=== PATIENT | female | born 1940 | race Caucasian/White ===

== ENCOUNTER 2017-06-20 02:44 | Inpatient (IN) | payer MEDICARE, OTHER ==
[2017-06-20 03:13] LABS: Hematocrit 42 % (35-47); Hemoglobin 13.5 g/dl (12.0-16.0); Mean Corpuscular HGB Conc 33 g/dl (31-36); Mean Corpuscular Hemoglobin 30 pg (27-31); Mean Corpuscular Volume 92 fL (80-97); Mean Platelet Volume 8 um3 (7.4-10.4); Red Cell Distribution Width 14 % (10.5-15); White Blood Count 13.4 10^3/ul (3.5-10.8)
[2017-06-20 03:24] LABS: Albumin 4.1 g/dL (3.2-5.2); BUN/Creatinine Ratio 21.8 (8-20); Calcium 9.5 mg/dL (8.6-10.3); EGFR African American 92.6 (>60); Globulin 2.9 g/dL (2-4); Magnesium 1.5 mg/dL (1.9-2.7); Potassium 3.3 mmol/L (3.5-5.0); Total Bilirubin 0.6 mg/dL (0.2-1.0)
[2017-06-20] MEDS ORDERED: Levofloxacin 500 MG IVPREMIX(* 500 MG/100 ML BAG IVPB ONE (03:47)
[2017-06-20] MEDS ORDERED: Ondansetron ODT TAB* 4 MG PO ONE (03:50)
[2017-06-20] MEDS ORDERED: Ondansetron INJ* 2 MG/ML VIAL ONE (03:51)
[2017-06-20] MEDS ORDERED: Ondansetron INJ* 2 MG/ML VIAL IV ONE (04:02)
--- NOTE | 2017-06-20 04:49 | ED ---
aButista Cardoza Tiffany, scribed for Kamran Hoff on 06/20/17 at 0310 . Complex/Multi-Sys Presentation - HPI Summary HPI Summary: This patient is a year old 76 F BIBA to [facility] with a chief complaint of dizziness s/p falling a few minutes ago due to upper right dental pain that has lasted for a month. The patient rates the tooth pain 10/10 in severity. Symptoms aggravated by nothing. Symptoms alleviated by nothing. Patient reports nausea, weakness, shakiness and bilateral leg edema. Patient denies head trauma , chest pain, back pain, head pain, abdominal pain and fever. The patient is not taking antibiotics for the tooth pain. - History Of Current Complaint Chief Complaint: EDDentalPain Time Seen by Provider: 06/20/17 02:47 Hx Obtained From: Patient Onset/Duration: Gradual Onset, Lasting Weeks - 3 weeks, Still Present Timing: Weeks Severity Currently: Severe - 10/10 Aggravating Factor(s): nothing Alleviating Factor(s): nothing Associated Signs And Symptoms: Positive: Other - nausea, weakness, shakiness and bilateral leg edema; NEGATIVE: head trauma, chest pain, back pain, head pain , abdominal pain and fever - Allergies/Home Medications Allergies/Adverse Reactions: Allergies Allergy/AdvReac Type Severity Reaction Status Date / Time Cephalexin [From Keflex] Allergy HIVES, Verified 11/17/14 06:38 CHILLS-SHOCK Clindamycin Allergy HIVES, Verified 11/17/14 06:38 CHILLS AND SHAKY Lactose Intolerance (GI) AdvReac GI Verified 11/17/14 06:38 wool Allergy Mild Rash Uncoded 06/20/17 03:56 ENVIRONMENTAL Allergy Unknown Uncoded 11/17/14 06:38 Reaction Details TOMATOES, ACID FRUITS AdvReac Mild STINGING Uncoded 06/20/17 03:56 IN MOUTH PMH/Surg Hx/FS Hx/Imm Hx Previously Healthy: No Endocrine/Hematology History: Reports: Hx Diabetes - TYPE II- ORAL MEDICATION AND DIET CONTROLLED Cardiovascular History: Reports: Hx Hypertension - ON MEDICATION FOR Respiratory History: Reports: Hx Asthma, Other Respiratory Problems/Disorders - WEARS OXYGEN 3 LITERS - NASAL CANNULA// SLEEPS IN A RECLINER CHAIR GI History: Reports: Hx Hiatal Hernia - SLEEPS AT AN ANGLE, Hx Irritable Bowel Musculoskeletal History: Reports: Hx Arthritis - "ALL OVER", Other Musculoskeletal History - NECK FUSION NON SURGICAL- RELATED TO ARTHRITIS Sensory History: Reports: Hx Cataracts, Hx Contacts or Glasses - GLASSES Denies: Hx Hearing Aid Opthamlomology History: Reports: Hx Cataracts, Hx Contacts or Glasses - GLASSES Neurological History: Reports: Hx Migraine - YEARS AGO Psychiatric History: Reports: Hx Depression - ON MEDICATION FOR - Surgical History Surgery Procedure, Year, and Place: TEETH EXTRACTIONS- [facility]. CATARACT BILATERAL. CYST REMOVAL - MOUTH- [facility]. CYST REMOVED FROM NECK- [facility] Hx Anesthesia Reactions: No Infectious Disease History: No Infectious Disease History: Denies: Traveled Outside the [place] in Last 30 Days - Family History Known Family History: Positive: Cardiac Disease, Blood Disorder, Other - Mother had breast cancer - Social History Alcohol Use: None Hx Substance Use: No Substance Use Type: Reports: None Hx Tobacco Use: No Smoking Status (MU): Never Smoked Tobacco Review of Systems Positive: Other - NEGATIVE: head truma. Negative: Fever Negative: Chest Pain Positive: Nausea. Negative: Abdominal Pain Positive: Edema - Bilateral leg Neurological: Other - dizziness, shakiness Positive: Weakness. Negative: Headache All Other Systems Reviewed And Are Negative: Yes Physical Exam - Summary Physical Exam Summary: Appearance: Well appearing, no pain distress Skin: warm, dry, reflects adequate perfusion Head/face: normal Teeth: Tenderness over 1-3 tooth area Eyes: EOMI, SHAMIKA ENT: normal Neck: supple, non-tender Respiratory: CTA, breath sounds present Cardiovascular: RRR, pulses symmetrical Abdomen: non-tender, soft Bowel: present Musculoskeletal: normal, strength/ROM intact Neuro: normal, sensory motor intact, A&Ox3 Triage Information Reviewed: Yes Vital Signs On Initial Exam: Initial Vitals Temp Pulse Resp BP Pulse Ox 97.1 F 101 16 142/63 90 06/20/17 02:54 06/20/17 02:54 06/20/17 02:54 06/20/17 02:54 06/20/17 02:54 Vital Signs Reviewed: Yes - Aitf Coma Scale Coma Scale Total: 15 Diagnostics - Vital Signs Vital Signs Temp Pulse Resp BP Pulse Ox 06/20/17 02:54 97.1 F 101 16 142/63 90 - Laboratory Lab Results: Lab Results 06/20/17 06/20/17 06/20/17 Range/Units 02:58 02:58 02:58 WBC 13.4 H (3.5-10.8) 10^3/ul RBC 4.50 (4.0-5.4) 10^6/ul Hgb 13.5 (12.0-16.0) g/dl Hct 42 (35-47) % MCV 92 (80-97) fL MCH 30 (27-31) pg MCHC 33 (31-36) g/dl RDW 14 (10.5-15) % Plt Count 277 (150-450) 10^3/ul MPV 8 (7.4-10.4) um3 Neut % (Auto) 84.5 H (38-83) % Lymph % (Auto) 7.9 L (25-47) % [place] % (Auto) 7.3 (1-9) % Eos % (Auto) 0 (0-6) % Baso % (Auto) 0.3 (0-2) % Absolute Neuts (auto) 11.3 H (1.5-7.7) 10^3/ul Absolute Lymphs (auto) 1.1 (1.0-4.8) 10^3/ul Absolute Monos (auto) 1.0 H (0-0.8) 10^3/ul Absolute Eos (auto) 0 (0-0.6) 10^3/ul Absolute Basos (auto) 0 (0-0.2) 10^3/ul Absolute Nucleated RBC 0 10^3/ul Nucleated RBC % 0 INR (Anticoag Therapy) 1.14 H (0.77-1.02) APTT 28.2 (26.0-36.3) seconds Sodium (133-145) mmol/L Potassium (3.5-5.0) mmol/L Chloride (101-111) mmol/L Carbon Dioxide (22-32) mmol/L Anion Gap (2-11) mmol/L BUN (6-24) mg/dL Creatinine (0.51-0.95) mg/dL Est GFR ( Amer) (>60) Est GFR (Non-Af Amer) (>60) BUN/Creatinine Ratio (8-20) Glucose (70-100) mg/dL Lactic Acid (0.5-2.0) mmol/L Calcium (8.6-10.3) mg/dL Magnesium (1.9-2.7) mg/dL Total Bilirubin (0.2-1.0) mg/dL AST (13-39) U/L ALT (7-52) U/L Alkaline Phosphatase (34-104) U/L Troponin I (<0.04) ng/mL B-Natriuretic Peptide 45 ( - 100) pg/mL Total Protein (6.4-8.9) g/dL Albumin (3.2-5.2) g/dL Globulin (2-4) g/dL Albumin/Globulin Ratio (1-3) Influenza A (Rapid) (Negative) Influenza B (Rapid) (Negative) 06/20/17 06/20/17 06/20/17 Range/Units 02:58 02:58 03:24 WBC (3.5-10.8) 10^3/ul RBC (4.0-5.4) 10^6/ul Hgb (12.0-16.0) g/dl Hct (35-47) % MCV (80-97) fL MCH (27-31) pg MCHC (31-36) g/dl RDW (10.5-15) % Plt Count (150-450) 10^3/ul MPV (7.4-10.4) um3 Neut % (Auto) (38-83) % Lymph % (Auto) (25-47) % [place] % (Auto) (1-9) % Eos % (Auto) (0-6) % Baso % (Auto) (0-2) % Absolute Neuts (auto) (1.5-7.7) 10^3/ul Absolute Lymphs (auto) (1.0-4.8) 10^3/ul Absolute Monos (auto) (0-0.8) 10^3/ul Absolute Eos (auto) (0-0.6) 10^3/ul Absolute Basos (auto) (0-0.2) 10^3/ul Absolute Nucleated RBC 10^3/ul Nucleated RBC % INR (Anticoag Therapy) (0.77-1.02) APTT (26.0-36.3) seconds Sodium 134 (133-145) mmol/L Potassium 3.3 L (3.5-5.0) mmol/L Chloride 98 L (101-111) mmol/L Carbon Dioxide 25 (22-32) mmol/L Anion Gap 11 (2-11) mmol/L BUN 17 (6-24) mg/dL Creatinine 0.78 (0.51-0.95) mg/dL Est GFR ( Amer) 92.6 (>60) Est GFR (Non-Af Amer) 72.0 (>60) BUN/Creatinine Ratio 21.8 H (8-20) Glucose 179 H (70-100) mg/dL Lactic Acid 1.2 (0.5-2.0) mmol/L Calcium 9.5 (8.6-10.3) mg/dL Magnesium 1.5 L (1.9-2.7) mg/dL Total Bilirubin 0.60 (0.2-1.0) mg/dL AST 17 (13-39) U/L ALT 16 (7-52) U/L Alkaline Phosphatase 42 (34-104) U/L Troponin I 0.00 (<0.04) ng/mL B-Natriuretic Peptide ( - 100) pg/mL Total Protein 7.0 (6.4-8.9) g/dL Albumin 4.1 (3.2-5.2) g/dL Globulin 2.9 (2-4) g/dL Albumin/Globulin Ratio 1.4 (1-3) Influenza A (Rapid) Negative (Negative) Influenza B (Rapid) Negative (Negative) Result Diagrams: 06/20/17 02:58 06/20/17 02:58 Lab Statement: Any lab studies that have been ordered have been reviewed, and results considered in the medical decision making process. - Radiology CXR Radiology Interpretation Completed By: ED Physician - Right lower infiltrate - EKG 03:11 Cardiac Rate: NL EKG Rhythm: Sinus Tachycardia - 100 BPM EKG Interpretation: No acute changes Complex Multi-Symp Course/Dx Course Of Treatment: This patient is a year old 76 F BIBA to [facility] with a chief complaint of dizziness s/p falling a few minutes ago due to upper right dental pain that has lasted for a month. An EKG reveals sinus tachycardia 100 BPM and no acute changes. CXR reveals, per ED physician, right lower infiltrate. Bloodwork obtained. We consulted Dr. Rivas (hospitalist) who agrees to admit the patient. Patient will be admitted. The patient is agreeable with this plan. - Diagnoses Differential Diagnoses/HQI/PQRI: Aspiration, Sepsis, Urinary Tract Infection Provider Diagnoses: Toothache, Pulmonary fibrosis, Dizziness, Unable to ambulate, Pneumonia - Physician Notifications Discussed Care Of Patient With: Noam Rivas Time Discussed With Above Provider: 03:52 Instructed by Provider To: Other - Dr. Rivas (hospitalist) agrees to admit the patient. Discharge - Discharge Plan Condition: Fair Disposition: ADMITTED TO [facility] Referrals: Diana Iverson MD [Primary Care Provider] - The documentation as recorded by the Bautista wong Tiffany accurately reflects the service I personally performed and the decisions made by Kavya andrews Emmanuel.
[2017-06-20] MEDS ORDERED: Melatonin (NF) 3 MG TAB PO PRN (05:47)
[2017-06-20] MEDS ORDERED: oxyCODONE TAB* 5 MG TAB PO PRN (05:48)
[2017-06-20] MEDS ORDERED: Ondansetron INJ* 2 MG/ML VIAL IV PRN (05:48)
[2017-06-20] MEDS ORDERED: Potassium Chlor TAB* 20 MEQ TAB.ER PO ONE (05:49)
[2017-06-20] MEDS ORDERED: NS 0.9% 1000 ML* 1,000 ML IV ONE (06:00)
--- NOTE | 2017-06-20 06:08 | HP ---
H&P (Free Text) History and Physical: PCP: Laz Iverson MD Date/Time: 06/20/2017 4945 CC: dizziness, fall HPI: Mrs Watts is a 76YO female HX 3L oxygen dependant interstitial lung disease & DM2 presents after an episode of dizziness resulting in a fall from which she could not get up. She called EMS and was brought in for evaluation. She feels it is due to a dental infection which has been waxing and waning since Thankgi, but worsening over the past week. She reports pain in the R maxilla, nausea without emesis, subjective F/C, and sweats, but no chest pain, SOB, palpitations, cough, congestion, myalgias, change in bowel, B/U/F of urine , rash, open wound, or abdominal pain. PMedHx interstitial lung disease, 3L NC oxygen dependant asthma DM2 HTN HLD IBS depression Ambulatory Orders Nursing to reconcile. Acetaminophen [Tylenol Extra Strength] 1,000 mg PO DAILY 06/06/12 Fexofenadine (NF) [Mariah 180 (NF)] 180 mg PO DAILY 06/06/12 Flovent Hfa 44Mcg* 2 puff INH BID 06/06/12 Fluconazole 100 MG TAB* [Diflucan TAB*] 200 mg PO DAILY PRN 06/06/12 Formoterol CAP.INH* [Foradil Aerolizer*] 1 puff INH BID 06/06/12 Montelukast Sodium TAB* [Singulair TAB*] 10 mg PO DAILY 06/06/12 Multiple Vitamin [Multivitamins] 1 tab PO 1200 06/06/12 Nasacort Aq Nasal [place]* 2 spray BOTH NARES DAILY 06/06/12 Potassium Chloride [K-Tabs] 10 meq PO QAM 06/06/12 Sertraline* [Zoloft*] 50 mg PO DAILY 06/06/12 Simvastatin [Zocor] 20 mg PO BEDTIME 06/06/12 Spironolactone TAB* [Aldactone*] 25 mg PO DAILY 06/06/12 Theophylline TAB* [Romero Dur*] 300 mg PO Q12H 06/06/12 metFORMIN* [Glucophage TAB*] 500 mg PO BID 06/06/12 predniSONE TAB* [Deltasone TAB*] 10 mg PO QAM 06/06/12 Albuterol HFA INHALER* [Ventolin HFA Inhaler*] 2 puff INH Q6H PRN 10/20/14 Calcium Carbonate-Vitamin D [Calcium 600 + D] 1 tab PO 1200 10/20/14 Oxygen 3 Liters By Nasal Cannula 10/20/14 Allergies Cephalexin [From Keflex] Allergy (Verified 11/17/14 06:38) HIVES, CHILLS-SHOCK Clindamycin Allergy (Verified 11/17/14 06:38) HIVES, CHILLS AND SHAKY Lactose Intolerance (GI) Adverse Reaction (Verified 11/17/14 06:38) GI wool Allergy (Mild, Uncoded 06/20/17 03:56) Rash pt states a rash and gets "sick" with breathing problems ENVIRONMENTAL Allergy (Uncoded 11/17/14 06:38) Unknown Reaction Details TOMATOES, ACID FRUITS Adverse Reaction (Mild, Uncoded 06/20/17 03:56) STINGING IN MOUTH SocHx: no tobacco, alcohol, or recreational drug HX; full code status FamHx: positive for HTN, CAD, lung CA, & leukemia ROS: as above, otherwise reviewed and all were negative vitals: Vital Signs Temp 36.2 C 06/20/17 02:54 Pulse 105 06/20/17 04:30 Resp 26 06/20/17 04:30 BP 141/64 06/20/17 04:30 Pulse Ox 92 06/20/17 04:30 Intake & Output 06/19/17 06/19/17 06/20/17 11:59 23:59 11:59 Intake Total 100 Balance 100 Weight 97.522 kg Intake: IV Fluids 100 Constitutional: NAD, normally developed, obese white female HEENM: atraumatic; sclera/conjunctiva: anicteric/clear; hearing: clinically intact; oropharynx: clear, mucosa moist Neck: soft tissue: no nuchal rigidity; thyroid: non-tender Pulmonary: scattered mild crackles & scant end-expiratory wheeze, fair to good aeration, no accessory muscle use CV: RR/RR, normal S1S2, no carotid bruit, no jugular venous distention, 2+ B DP/ PT, no edema Abdominal: soft, non-distended, non-tender, no rebound/guarding/rigidity, normoactive bowel sounds, no hepatosplenomegaly or masses, no costovertebral angle tenderness Musculoskeletal: general: grossly intact, no tenderness to palpation Integumental: normal appearance and texture of exposed skin Psychiatric orientation: AA&O to PPS affect: calm mood: cooperative eye contact: good content: reliable responses: timely insight: good to fair Testing: Lab Results 06/20/17 06/20/17 06/20/17 Range/Units 02:58 02:58 02:58 WBC 13.4 H (3.5-10.8) 10^3/ul RBC 4.50 (4.0-5.4) 10^6/ul Hgb 13.5 (12.0-16.0) g/dl Hct 42 (35-47) % MCV 92 (80-97) fL MCH 30 (27-31) pg MCHC 33 (31-36) g/dl RDW 14 (10.5-15) % Plt Count 277 (150-450) 10^3/ul MPV 8 (7.4-10.4) um3 Neut % (Auto) 84.5 H (38-83) % Lymph % (Auto) 7.9 L (25-47) % [place] % (Auto) 7.3 (1-9) % Eos % (Auto) 0 (0-6) % Baso % (Auto) 0.3 (0-2) % Absolute Neuts (auto) 11.3 H (1.5-7.7) 10^3/ul Absolute Lymphs (auto) 1.1 (1.0-4.8) 10^3/ul Absolute Monos (auto) 1.0 H (0-0.8) 10^3/ul Absolute Eos (auto) 0 (0-0.6) 10^3/ul Absolute Basos (auto) 0 (0-0.2) 10^3/ul Absolute Nucleated RBC 0 10^3/ul Nucleated RBC % 0 INR (Anticoag Therapy) 1.14 H (0.77-1.02) APTT 28.2 (26.0-36.3) seconds Sodium (133-145) mmol/L Potassium (3.5-5.0) mmol/L Chloride (101-111) mmol/L Carbon Dioxide (22-32) mmol/L Anion Gap (2-11) mmol/L BUN (6-24) mg/dL Creatinine (0.51-0.95) mg/dL Est GFR ( Amer) (>60) Est GFR (Non-Af Amer) (>60) BUN/Creatinine Ratio (8-20) Glucose (70-100) mg/dL Lactic Acid (0.5-2.0) mmol/L Calcium (8.6-10.3) mg/dL Magnesium (1.9-2.7) mg/dL Total Bilirubin (0.2-1.0) mg/dL AST (13-39) U/L ALT (7-52) U/L Alkaline Phosphatase (34-104) U/L Troponin I (<0.04) ng/mL B-Natriuretic Peptide 45 ( - 100) pg/mL Total Protein (6.4-8.9) g/dL Albumin (3.2-5.2) g/dL Globulin (2-4) g/dL Albumin/Globulin Ratio (1-3) Influenza A (Rapid) (Negative) Influenza B (Rapid) (Negative) 06/20/17 06/20/17 06/20/17 Range/Units 02:58 02:58 03:24 WBC (3.5-10.8) 10^3/ul RBC (4.0-5.4) 10^6/ul Hgb (12.0-16.0) g/dl Hct (35-47) % MCV (80-97) fL MCH (27-31) pg MCHC (31-36) g/dl RDW (10.5-15) % Plt Count (150-450) 10^3/ul MPV (7.4-10.4) um3 Neut % (Auto) (38-83) % Lymph % (Auto) (25-47) % [place] % (Auto) (1-9) % Eos % (Auto) (0-6) % Baso % (Auto) (0-2) % Absolute Neuts (auto) (1.5-7.7) 10^3/ul Absolute Lymphs (auto) (1.0-4.8) 10^3/ul Absolute Monos (auto) (0-0.8) 10^3/ul Absolute Eos (auto) (0-0.6) 10^3/ul Absolute Basos (auto) (0-0.2) 10^3/ul Absolute Nucleated RBC 10^3/ul Nucleated RBC % INR (Anticoag Therapy) (0.77-1.02) APTT (26.0-36.3) seconds Sodium 134 (133-145) mmol/L Potassium 3.3 L (3.5-5.0) mmol/L Chloride 98 L (101-111) mmol/L Carbon Dioxide 25 (22-32) mmol/L Anion Gap 11 (2-11) mmol/L BUN 17 (6-24) mg/dL Creatinine 0.78 (0.51-0.95) mg/dL Est GFR ( Amer) 92.6 (>60) Est GFR (Non-Af Amer) 72.0 (>60) BUN/Creatinine Ratio 21.8 H (8-20) Glucose 179 H (70-100) mg/dL Lactic Acid 1.2 (0.5-2.0) mmol/L Calcium 9.5 (8.6-10.3) mg/dL Magnesium 1.5 L (1.9-2.7) mg/dL Total Bilirubin 0.60 (0.2-1.0) mg/dL AST 17 (13-39) U/L ALT 16 (7-52) U/L Alkaline Phosphatase 42 (34-104) U/L Troponin I 0.00 (<0.04) ng/mL B-Natriuretic Peptide ( - 100) pg/mL Total Protein 7.0 (6.4-8.9) g/dL Albumin 4.1 (3.2-5.2) g/dL Globulin 2.9 (2-4) g/dL Albumin/Globulin Ratio 1.4 (1-3) Influenza A (Rapid) Negative (Negative) Influenza B (Rapid) Negative (Negative) ECG, personally reviewed: sinus tachycardia rate 100, no ischemia CXR, personally reviewed: chronic, stable bibasilar scarring Impression: 76F presenting with dizziness, generalized weakness, & fall of uncertain etiology with finding of leukocytosis DIAGNOSIS & PLAN Primary infectious burden w/ generalized weakness, suspect UTI : obtain UA : IV levofloxacin : blood CX : PT evaluation : supportive care Secondary interstitial lung disease, 3L NC oxygen dependant : review meds once reconciled asthma : review meds once reconciled DM2 : review meds once reconciled HTN : review meds once reconciled HLD : review meds once reconciled IBS : review meds once reconciled depression : review meds once reconciled Admission Rational: inpatient for fall, generalized weakness, & unidentified infection; do not anticipate discharge w/i 48h DVTp: heparin SQ & SCDs Code Status: full HCP: Fanta Brennan
[2017-06-20] MEDS ORDERED: Levofloxacin 250 MG IVPREMX(*) 250 MG/50 ML BAG IVPB ONE (06:45)
[2017-06-20] MEDS: Acetaminophen TAB* 325 MG PO PRN ×3 (06:55→22:31)
[2017-06-20] MEDS: Omeprazole CAP* 20 MG PO SCH (06:55)
[2017-06-20] MEDS ORDERED: Magnesium Sulfate 2 GM IV* 2 GM/50 ML BAG IVPB ONE (07:15)
--- NOTE | 2017-06-20 07:59 | RAD ---
INDICATION: Dizziness COMPARISON: Most recent chest x-ray dated April 10, 2004 TECHNIQUE: Single AP portable view of the chest was obtained. FINDINGS: Image quality is compromised due to the relative inferiority of a portable chest x-ray. The heart and mediastinum exhibit normal size and contour. There is density obscuring the bilateral lung bases including obscuration of the diaphragm and causing costophrenic angle blunting. More superiorly the lungs are adequately aerated. Visualized bones are normal for the patient's age. IMPRESSION: Density in the bilateral lung bases obscuring the diaphragm. Be atelectasis, consolidation and/or pleural effusion.
[2017-06-20 08:59] LABS: BUN/Creatinine Ratio 22.5 (8-20); Calcium 9.2 mg/dL (8.6-10.3); EGFR African American 89.9 (>60); EGFR African American 91.2 (>60); EGFR Non-African American 69.9 (>60); EGFR Non-African American 70.9 (>60); Potassium 3.6 mmol/L (3.5-5.0)
[2017-06-20] MEDS: NS 0.9% 1000 ML* 1,000 ML IV SCH ×2 (09:01→23:44)
[2017-06-20] MEDS: Insulin LISPRO* 1 UNITS UNIT SUBCUT SCH ×4 (09:08→21:06)
[2017-06-20] MEDS: Docusate CAP* 100 MG PO SCH ×2 (09:09→20:54)
[2017-06-20 10:19] LABS: Urine Bacteria Absent (Absent); Urine Bilirubin Negative (Negative); Urine Glucose Negative (Negative); Urine Nitrite Negative (Negative)
--- NOTE | 2017-06-20 14:52 | PN ---
Subjective Date of Service: 06/20/17 Interval History: Patient seen and examined. States she feels "awful". Upper jaw pain with difficulty opening her mouth, with pain 5/10 at present. Chills throughout the day, t-max>101. Describes no urinary complaints, no SOB, no chest pain. Mild nausea, no vomiting. Complaint of general malaise and weakness. Objective Active Medications: Acetaminophen (Tylenol Tab*) 650 mg PO Q6H PRN PRN Reason: FEVER/PAIN Last Admin: 06/20/17 06:55 Dose: 650 mg Docusate Sodium (Colace Cap*) 200 mg PO BID [facility] Last Admin: 06/20/17 09:09 Dose: 200 mg Heparin Sodium (Porcine) (Heparin Vial(*)) 5,000 units SUBCUT Q8HR [facility] Levofloxacin/Dextrose (Levaquin 750 Mg Ivpremix(*)) 750 mg in 150 mls @ 100 mls /hr IVPB Q24H [facility] Sodium Chloride (Ns 0.9% 1000 Ml*) 1,000 mls @ 100 mls/hr IV PER RATE [facility] Last Admin: 06/20/17 09:01 Dose: 100 mls/hr Insulin Human Lispro (Humalog*) 0 units SUBCUT ACHS [facility] PRN Reason: Protocol Last Admin: 06/20/17 11:52 Dose: Not Given Melatonin (Melatonin (Nf)) 3 mg PO BEDTIME PRN; Protocol PRN Reason: Sleep Omeprazole (Prilosec Cap*) 20 mg PO DAILY@0600 [facility] Last Admin: 06/20/17 06:55 Dose: 20 mg Ondansetron HCl (Zofran Inj*) 4 mg IV Q6H PRN PRN Reason: NAUSEA Oxycodone HCl (Roxycodone Tab*) 5 mg PO Q4H PRN PRN Reason: PAIN (DENTAL) Vital Signs - 8 hr 06/20/17 06/20/17 06/20/17 06:47 07:48 08:06 Temperature 100.7 F Pulse Rate 100 Respiratory 22 16 16 Rate Blood Pressure 137/63 (mmHg) O2 Sat by Pulse 92 Oximetry 06/20/17 11:13 Temperature 97.9 F Pulse Rate 82 Respiratory 16 Rate Blood Pressure 114/47 (mmHg) O2 Sat by Pulse 96 Oximetry Oxygen Devices in Use Now: Nasal Cannula - 3LNC continuous Appearance: Pale, ill appearing, mild distress Eyes: No Scleral Icterus, PERRLA Ears/Nose/Mouth/Throat: - - dry oral mucosa, difficulty visualizing oral cavity Neck: NL Appearance and Movements; NL JVP, Trachea Midline Respiratory: Symmetrical Chest Expansion and Respiratory Effort, Clear to Auscultation Cardiovascular: NL Sounds; No Murmurs; No JVD, RRR Abdominal: NL Sounds; No Tenderness; No Distention Extremities: No Edema, No Clubbing, Cyanosis Skin: No Rash or Ulcers Neurological: Alert and Oriented x 3 Nutrition: Taking PO's Result Diagrams: 06/20/17 02:58 06/20/17 08:37 Additional Lab and Data: Lab Results 06/20/17 06/20/17 06/20/17 Range/Units 02:58 02:58 02:58 WBC 13.4 H (3.5-10.8) 10^3/ul RBC 4.50 (4.0-5.4) 10^6/ul Hgb 13.5 (12.0-16.0) g/dl Hct 42 (35-47) % MCV 92 (80-97) fL MCH 30 (27-31) pg MCHC 33 (31-36) g/dl RDW 14 (10.5-15) % Plt Count 277 (150-450) 10^3/ul MPV 8 (7.4-10.4) um3 Neut % (Auto) 84.5 H (38-83) % Lymph % (Auto) 7.9 L (25-47) % [place] % (Auto) 7.3 (1-9) % Eos % (Auto) 0 (0-6) % Baso % (Auto) 0.3 (0-2) % Absolute Neuts (auto) 11.3 H (1.5-7.7) 10^3/ul Absolute Lymphs (auto) 1.1 (1.0-4.8) 10^3/ul Absolute Monos (auto) 1.0 H (0-0.8) 10^3/ul Absolute Eos (auto) 0 (0-0.6) 10^3/ul Absolute Basos (auto) 0 (0-0.2) 10^3/ul Absolute Nucleated RBC 0 10^3/ul Nucleated RBC % 0 INR (Anticoag Therapy) 1.14 H (0.77-1.02) APTT 28.2 (26.0-36.3) seconds Sodium (133-145) mmol/L Potassium (3.5-5.0) mmol/L Chloride (101-111) mmol/L Carbon Dioxide (22-32) mmol/L Anion Gap (2-11) mmol/L BUN (6-24) mg/dL Creatinine (0.51-0.95) mg/dL Est GFR ( Amer) (>60) Est GFR (Non-Af Amer) (>60) BUN/Creatinine Ratio (8-20) Glucose (70-100) mg/dL Lactic Acid (0.5-2.0) mmol/L Calcium (8.6-10.3) mg/dL Magnesium (1.9-2.7) mg/dL Total Bilirubin (0.2-1.0) mg/dL AST (13-39) U/L ALT (7-52) U/L Alkaline Phosphatase (34-104) U/L Troponin I (<0.04) ng/mL B-Natriuretic Peptide 45 ( - 100) pg/mL Total Protein (6.4-8.9) g/dL Albumin (3.2-5.2) g/dL Globulin (2-4) g/dL Albumin/Globulin Ratio (1-3) Influenza A (Rapid) (Negative) Influenza B (Rapid) (Negative) 06/20/17 06/20/17 06/20/17 Range/Units 02:58 02:58 03:24 WBC (3.5-10.8) 10^3/ul RBC (4.0-5.4) 10^6/ul Hgb (12.0-16.0) g/dl Hct (35-47) % MCV (80-97) fL MCH (27-31) pg MCHC (31-36) g/dl RDW (10.5-15) % Plt Count (150-450) 10^3/ul MPV (7.4-10.4) um3 Neut % (Auto) (38-83) % Lymph % (Auto) (25-47) % [place] % (Auto) (1-9) % Eos % (Auto) (0-6) % Baso % (Auto) (0-2) % Absolute Neuts (auto) (1.5-7.7) 10^3/ul Absolute Lymphs (auto) (1.0-4.8) 10^3/ul Absolute Monos (auto) (0-0.8) 10^3/ul Absolute Eos (auto) (0-0.6) 10^3/ul Absolute Basos (auto) (0-0.2) 10^3/ul Absolute Nucleated RBC 10^3/ul Nucleated RBC % INR (Anticoag Therapy) (0.77-1.02) APTT (26.0-36.3) seconds Sodium 134 (133-145) mmol/L Potassium 3.3 L (3.5-5.0) mmol/L Chloride 98 L (101-111) mmol/L Carbon Dioxide 25 (22-32) mmol/L Anion Gap 11 (2-11) mmol/L BUN 17 (6-24) mg/dL Creatinine 0.78 (0.51-0.95) mg/dL Est GFR ( Amer) 92.6 (>60) Est GFR (Non-Af Amer) 72.0 (>60) BUN/Creatinine Ratio 21.8 H (8-20) Glucose 179 H (70-100) mg/dL Lactic Acid 1.2 (0.5-2.0) mmol/L Calcium 9.5 (8.6-10.3) mg/dL Magnesium 1.5 L (1.9-2.7) mg/dL Total Bilirubin 0.60 (0.2-1.0) mg/dL AST 17 (13-39) U/L ALT 16 (7-52) U/L Alkaline Phosphatase 42 (34-104) U/L Troponin I 0.00 (<0.04) ng/mL B-Natriuretic Peptide ( - 100) pg/mL Total Protein 7.0 (6.4-8.9) g/dL Albumin 4.1 (3.2-5.2) g/dL Globulin 2.9 (2-4) g/dL Albumin/Globulin Ratio 1.4 (1-3) Influenza A (Rapid) Negative (Negative) Influenza B (Rapid) Negative (Negative) Assess/Plan/Problems-Billing Assessment: This is a 76 year old female with complaint of weakness after a dizzy spell with subsquent fall who reports dental issues for which she was supposed to see dentist today, now with fever, chills and increased pain and facial sensitivity. - Patient Problems (1) Abscess of maxilla Code(s): M27.2 - INFLAMMATORY CONDITIONS OF JAWS SNOMED Code(s): 375840739 Comment: - R/O maxillary abcess as source of infection - CT facial bones with focus on R maxilla - Pain control with oxycodone - May change atbx if this is the source, currently on levaquin (2) Fever chills Code(s): R50.9 - FEVER, UNSPECIFIED SNOMED Code(s): 182582776 Comment: - Blood cultures now - Continue IVF - Tylenol PRN - Follow urine cx - Keep levaquin for now (3) Diabetes mellitus Code(s): E11.9 - TYPE 2 DIABETES MELLITUS WITHOUT COMPLICATIONS SNOMED Code(s) : 87581902 Comment: - Monitor sugars - Insulin ss (4) Hypertension Code(s): I10 - ESSENTIAL (PRIMARY) HYPERTENSION SNOMED Code(s): 55320149 Comment: - BP stable, continue home meds (5) COPD (chronic obstructive pulmonary disease) Code(s): J44.9 - CHRONIC OBSTRUCTIVE PULMONARY DISEASE, UNSPECIFIED SNOMED Code(s): 30982189 Comment: - Chronic asthma - O2 3L continuous - continue singulair, theodur and albuterol (6) Depression Current Visit: Yes Status: Acute Code(s): F32.9 - MAJOR DEPRESSIVE DISORDER , SINGLE EPISODE, UNSPECIFIED SNOMED Code(s): 58169334 Comment: - Sertraline 50mg daily Status and Disposition: Remain inpatient to r/o maxillary abcess with bacteremia. Counseling and/or Coordination of Care Minutes: Coordinated with patient and staff
[2017-06-20] MEDS ORDERED: Iodixanol* (CONTRAST) 320 MG/ML 100 ML SDV IV ONE (16:28)
--- NOTE | 2017-06-20 17:42 | RAD ---
INDICATION: Abscess right maxillary region. Tooth extraction. COMPARISON: None TECHNIQUE: Axial source images were acquired from the vertex of the mandible through the orbits. Coronal and sagittal reconstructed images were acquired. 75 mL of Visipaque 320 was utilized. FINDINGS: Bones: There is no acute facial bone fracture. Orbits: The globes and intraconal structures appear intact. The optic nerves are symmetric. Extraocular muscles appear normal. There is no intraconal inflammatory change or retrobulbar mass.. Paranasal sinuses: There is focal mucosal thickening in the floor the left maxillary antrum "22 13 mm. There is a small mucous retention cyst or polyp or perhaps focal mucosal thickening in the right maxillary antrum measuring 1.1 cm. There is mild ethmoid sinus. Compressive thickening. There is right sphenoid sinusitis present a short air-fluid level. Brain: There are no acute abnormalities of the visualized brain parenchyma. Soft tissues: There is no evidence of a superficial abscess about the facial structures. Other: The right submandibular gland appears mildly prominent. There is no stranding adjacent fat [place] or abnormal enhancement. The left submandibular gland is not identified. There is also a heterogeneous and enlarged right thyroid lobe. This could be evaluated with follow-up thyroid sonography The visualized soft tissue elements about the neck appear normal. IMPRESSION: NO EVIDENCE OF A SOFT TISSUE ABSCESS. THERE ARE FINDINGS OF MILD ACUTE AND CHRONIC SINUSITIS. PROMINENT RIGHT SUBMANDIBULAR GLAND. THE LEFT SUBMANDIBULAR GLAND IS NOT SEEN. SUSPECT GOITER. THIS CAN BE REEVALUATED ON A NONEMERGENT BASIS WITH THYROID SONOGRAPHY
[2017-06-20] MEDS: oxyCODONE TAB* 5 MG TAB PO PRN (18:13)
[2017-06-21] MEDS ORDERED: Ibuprofen TAB* 400 MG PO PRN (03:33)
[2017-06-21] MEDS ORDERED: Levofloxacin 750 MG IVPREMIX(* 750 MG/150 ML BAG IVPB SCH (04:00)
[2017-06-21] MEDS: Omeprazole CAP* 20 MG PO SCH (05:52)
[2017-06-21] MEDS: Acetaminophen TAB* 325 MG PO PRN ×2 (05:52→15:58)
[2017-06-21] MEDS: oxyCODONE TAB* 5 MG TAB PO PRN ×2 (05:52→14:26)
[2017-06-21] MEDS: Heparin VIAL(*) 5000 UNITS/ML VIAL (FIVE THOUSAND) SUBCUT SCH ×3 (05:53→21:53)
[2017-06-21] MEDS: Docusate CAP* 100 MG PO SCH (08:54)
[2017-06-21] MEDS: Insulin LISPRO* 1 UNITS UNIT SUBCUT SCH ×4 (08:54→21:53)
[2017-06-21] MEDS: Spironolactone TAB* 25 MG PO SCH (08:55)
[2017-06-21] MEDS: Montelukast Sodium TAB* 10 MG PO SCH (08:55)
[2017-06-21] MEDS: Sertraline* 50 MG TAB PO SCH (08:55)
[2017-06-21] MEDS: NS 0.9% 1000 ML* 1,000 ML IV SCH (15:28)
--- NOTE | 2017-06-21 15:39 | PN ---
Subjective Date of Service: 06/21/17 Interval History: Pt states she is still feeling poorly. She c/o continued intermittent fevers, chills, sweats and overall generalized weakness. She continues to have pain in her R maxilla, no drainage from around her tooth but she feels it is swollen. Objective Active Medications: Acetaminophen (Tylenol Tab*) 650 mg PO Q6H PRN PRN Reason: FEVER/PAIN Last Admin: 06/21/17 05:52 Dose: 650 mg Docusate Sodium (Colace Cap*) 200 mg PO BID [facility] Last Admin: 06/21/17 08:54 Dose: 200 mg Heparin Sodium (Porcine) (Heparin Vial(*)) 5,000 units SUBCUT Q8HR [facility] Last Admin: 06/21/17 14:27 Dose: 5,000 units Levofloxacin/Dextrose (Levaquin 750 Mg Ivpremix(*)) 750 mg in 150 mls @ 100 mls /hr IVPB Q24H [facility] Last Admin: 06/21/17 04:07 Dose: 100 mls/hr Insulin Human Lispro (Humalog*) 0 units SUBCUT ACHS [facility] PRN Reason: Protocol Last Admin: 06/21/17 12:55 Dose: Not Given Melatonin (Melatonin (Nf)) 3 mg PO BEDTIME PRN; Protocol PRN Reason: Sleep Montelukast Sodium (Singulair Tab*) 10 mg PO DAILY [facility] Last Admin: 06/21/17 08:55 Dose: 10 mg Omeprazole (Prilosec Cap*) 20 mg PO DAILY@0600 [facility] Last Admin: 06/21/17 05:52 Dose: 20 mg Ondansetron HCl (Zofran Inj*) 4 mg IV Q6H PRN PRN Reason: NAUSEA Oxycodone HCl (Roxycodone Tab*) 5 mg PO Q4H PRN PRN Reason: PAIN (DENTAL) Last Admin: 06/21/17 14:26 Dose: 5 mg Sertraline HCl (Zoloft*) 50 mg PO DAILY [facility] Last Admin: 06/21/17 08:55 Dose: 50 mg Spironolactone (Aldactone Tab*) 25 mg PO DAILY [facility] Last Admin: 06/21/17 08:55 Dose: 25 mg Vital Signs - 8 hr 06/21/17 06/21/17 06/21/17 07:35 11:55 12:54 Temperature 99.2 F Pulse Rate 78 Respiratory 16 16 18 Rate Blood Pressure 120/61 (mmHg) O2 Sat by Pulse 95 Oximetry 06/21/17 14:26 Temperature Pulse Rate Respiratory 20 Rate Blood Pressure (mmHg) O2 Sat by Pulse Oximetry Oxygen Devices in Use Now: Nasal Cannula - 3L Appearance: Elderly female sitting up in bed, NAD Eyes: No Scleral Icterus Ears/Nose/Mouth/Throat: - - tacky oral mucosa, swelling or clear infection of the R maxilla, molars Respiratory: Symmetrical Chest Expansion and Respiratory Effort, - - coarse bibasilar crackles Cardiovascular: NL Sounds; No Murmurs; No JVD, RRR, - - trace-1+ pitting edema of the B/L LE Abdominal: NL Sounds; No Tenderness; No Distention - obese Extremities: No Clubbing, Cyanosis Skin: No Rash or Ulcers, No Nodules or Sclerosis Neurological: Alert and Oriented x 3 Result Diagrams: 06/20/17 02:58 06/20/17 08:37 Additional Lab and Data: Lab Results 06/20/17 06/20/17 06/20/17 Range/Units 02:58 02:58 02:58 WBC 13.4 H (3.5-10.8) 10^3/ul RBC 4.50 (4.0-5.4) 10^6/ul Hgb 13.5 (12.0-16.0) g/dl Hct 42 (35-47) % MCV 92 (80-97) fL MCH 30 (27-31) pg MCHC 33 (31-36) g/dl RDW 14 (10.5-15) % Plt Count 277 (150-450) 10^3/ul MPV 8 (7.4-10.4) um3 Neut % (Auto) 84.5 H (38-83) % Lymph % (Auto) 7.9 L (25-47) % [place] % (Auto) 7.3 (1-9) % Eos % (Auto) 0 (0-6) % Baso % (Auto) 0.3 (0-2) % Absolute Neuts (auto) 11.3 H (1.5-7.7) 10^3/ul Absolute Lymphs (auto) 1.1 (1.0-4.8) 10^3/ul Absolute Monos (auto) 1.0 H (0-0.8) 10^3/ul Absolute Eos (auto) 0 (0-0.6) 10^3/ul Absolute Basos (auto) 0 (0-0.2) 10^3/ul Absolute Nucleated RBC 0 10^3/ul Nucleated RBC % 0 INR (Anticoag Therapy) 1.14 H (0.77-1.02) APTT 28.2 (26.0-36.3) seconds Sodium (133-145) mmol/L Potassium (3.5-5.0) mmol/L Chloride (101-111) mmol/L Carbon Dioxide (22-32) mmol/L Anion Gap (2-11) mmol/L BUN (6-24) mg/dL Creatinine (0.51-0.95) mg/dL Est GFR ( Amer) (>60) Est GFR (Non-Af Amer) (>60) BUN/Creatinine Ratio (8-20) Glucose (70-100) mg/dL Lactic Acid (0.5-2.0) mmol/L Calcium (8.6-10.3) mg/dL Magnesium (1.9-2.7) mg/dL Total Bilirubin (0.2-1.0) mg/dL AST (13-39) U/L ALT (7-52) U/L Alkaline Phosphatase (34-104) U/L Troponin I (<0.04) ng/mL B-Natriuretic Peptide 45 ( - 100) pg/mL Total Protein (6.4-8.9) g/dL Albumin (3.2-5.2) g/dL Globulin (2-4) g/dL Albumin/Globulin Ratio (1-3) Influenza A (Rapid) (Negative) Influenza B (Rapid) (Negative) 06/20/17 06/20/17 06/20/17 Range/Units 02:58 02:58 03:24 WBC (3.5-10.8) 10^3/ul RBC (4.0-5.4) 10^6/ul Hgb (12.0-16.0) g/dl Hct (35-47) % MCV (80-97) fL MCH (27-31) pg MCHC (31-36) g/dl RDW (10.5-15) % Plt Count (150-450) 10^3/ul MPV (7.4-10.4) um3 Neut % (Auto) (38-83) % Lymph % (Auto) (25-47) % [place] % (Auto) (1-9) % Eos % (Auto) (0-6) % Baso % (Auto) (0-2) % Absolute Neuts (auto) (1.5-7.7) 10^3/ul Absolute Lymphs (auto) (1.0-4.8) 10^3/ul Absolute Monos (auto) (0-0.8) 10^3/ul Absolute Eos (auto) (0-0.6) 10^3/ul Absolute Basos (auto) (0-0.2) 10^3/ul Absolute Nucleated RBC 10^3/ul Nucleated RBC % INR (Anticoag Therapy) (0.77-1.02) APTT (26.0-36.3) seconds Sodium 134 (133-145) mmol/L Potassium 3.3 L (3.5-5.0) mmol/L Chloride 98 L (101-111) mmol/L Carbon Dioxide 25 (22-32) mmol/L Anion Gap 11 (2-11) mmol/L BUN 17 (6-24) mg/dL Creatinine 0.78 (0.51-0.95) mg/dL Est GFR ( Amer) 92.6 (>60) Est GFR (Non-Af Amer) 72.0 (>60) BUN/Creatinine Ratio 21.8 H (8-20) Glucose 179 H (70-100) mg/dL Lactic Acid 1.2 (0.5-2.0) mmol/L Calcium 9.5 (8.6-10.3) mg/dL Magnesium 1.5 L (1.9-2.7) mg/dL Total Bilirubin 0.60 (0.2-1.0) mg/dL AST 17 (13-39) U/L ALT 16 (7-52) U/L Alkaline Phosphatase 42 (34-104) U/L Troponin I 0.00 (<0.04) ng/mL B-Natriuretic Peptide ( - 100) pg/mL Total Protein 7.0 (6.4-8.9) g/dL Albumin 4.1 (3.2-5.2) g/dL Globulin 2.9 (2-4) g/dL Albumin/Globulin Ratio 1.4 (1-3) Influenza A (Rapid) Negative (Negative) Influenza B (Rapid) Negative (Negative) Microbiology and Other Data: Microbiology 06/20/17 10:05 Urine Culture - Final Urine 06/20/17 14:40 Aerobic Blood Culture - Preliminary Blood Venous No Growth Day 1 Anaerobic Blood Culture - Preliminary No Growth Day 1 06/20/17 03:58 Aerobic Blood Culture - Preliminary Blood Venous No Growth Day 1 Anaerobic Blood Culture - Preliminary No Growth Day 1 06/20/17 03:58 Aerobic Blood Culture - Preliminary Blood Venous No Growth Day 1 Anaerobic Blood Culture - Preliminary No Growth Day 1 Assess/Plan/Problems-Billing Ms Watts is a 76 year old female with complaint of weakness after a dizzy spell with subsquent fall who reports dental issues for which she was supposed to see dentist, now with fever, chills and increased pain and facial sensitivity. - Patient Problems (1) Fever of unknown origin Current Visit: Yes Status: Acute Comment: The patient continues to have fevers as high as 103F. I do not think she has a UTI as her urine is nitrate negative and no bacteria were seen. Dental abscess also seems much less likely as the CT scan was negative for abscess. She could have acute on chronic sinusitis however I would have expected her to respond to the levaquin. I am most suspicous the patient may have influenza despite the negative flu swab. Will start tamiflu 75mg BID. Will check CRP and CBC tomorrow. Add CRP to labs drawn in ER yesterday. (2) Interstitial lung disease Current Visit: Yes Status: Acute Code(s): J84.9 - INTERSTITIAL PULMONARY DISEASE, UNSPECIFIED SNOMED Code(s): 358615924 Comment: Continue 3L O2-home setting. No significant SOB at this time. (3) Depression Current Visit: Yes Status: Acute Code(s): F32.9 - MAJOR DEPRESSIVE DISORDER , SINGLE EPISODE, UNSPECIFIED SNOMED Code(s): 53843716 Comment: Continue sertraline 50mg daily. (4) Diabetes mellitus Current Visit: Yes Status: Acute Code(s): E11.9 - TYPE 2 DIABETES MELLITUS WITHOUT COMPLICATIONS SNOMED Code(s): 65408184 Comment: Sugars are under good control. Continue (5) Hypertension Current Visit: Yes Status: Acute Code(s): I10 - ESSENTIAL (PRIMARY) HYPERTENSION SNOMED Code(s): 46294532 Comment: BP is under good control. Will continue the home medication regimen. (6) DVT prophylaxis Current Visit: Yes Status: Acute Code(s): YYL1939 - SNOMED Code(s): 365346474 Comment: SQ heparin (7) Full code status Current Visit: Yes Status: Acute Code(s): Z78.9 - OTHER SPECIFIED HEALTH STATUS SNOMED Code(s): 707120608 Status and Disposition: Remain inpatient to r/o [facility] with bacteremia.
[2017-06-21] MEDS ORDERED: Saline NASAL SPRAY 0.65%* BTL BOTH NARES PRN (15:42)
[2017-06-21] MEDS ORDERED: Docusate CAP* 100 MG PO PRN (16:03)
[2017-06-21 16:20] LABS: C Reactive Protein 172.22 mg/L (< 5.00)
[2017-06-21] MEDS: metroNIDAZOLE TAB* 250 MG PO SCH ×2 (17:01→21:52)
[2017-06-21] MEDS: Oseltamivir CAP* 75 MG PO SCH ×2 (17:01→21:52)
[2017-06-22] MEDS: Acetaminophen TAB* 325 MG PO PRN ×3 (00:33→20:50)
[2017-06-22] MEDS: Levofloxacin 500 MG IVPREMIX(* 500 MG/100 ML BAG IVPB SCH (04:11)
[2017-06-22] MEDS: Heparin VIAL(*) 5000 UNITS/ML VIAL (FIVE THOUSAND) SUBCUT SCH ×3 (05:36→21:40)
[2017-06-22 05:42] LABS: Hematocrit 36 % (35-47); Hemoglobin 11.8 g/dl (12.0-16.0); Mean Corpuscular HGB Conc 33 g/dl (31-36); Mean Corpuscular Hemoglobin 30 pg (27-31); Mean Corpuscular Volume 92 fL (80-97); Mean Platelet Volume 8 um3 (7.4-10.4); Red Blood Count 3.91 10^6/ul (4.0-5.4); Red Cell Distribution Width 15 % (10.5-15); White Blood Count 4.8 10^3/ul (3.5-10.8)
[2017-06-22 06:27] LABS: BUN/Creatinine Ratio 17.3 (8-20); C Reactive Protein 195.81 mg/L (< 5.00); Calcium 8.8 mg/dL (8.6-10.3); EGFR African American 147.8 (>60); Potassium 3.8 mmol/L (3.5-5.0)
[2017-06-22] MEDS: Insulin LISPRO* 1 UNITS UNIT SUBCUT SCH ×4 (07:42→20:53)
[2017-06-22] MEDS: Sertraline* 50 MG TAB PO SCH (09:11)
[2017-06-22] MEDS: Spironolactone TAB* 25 MG PO SCH (09:11)
[2017-06-22] MEDS: metroNIDAZOLE TAB* 250 MG PO SCH ×2 (09:11→20:50)
[2017-06-22] MEDS: Oseltamivir CAP* 75 MG PO SCH ×2 (09:11→20:50)
[2017-06-22] MEDS: Montelukast Sodium TAB* 10 MG PO SCH (09:11)
--- NOTE | 2017-06-22 09:57 | PN ---
Subjective Date of Service: 06/22/17 Interval History: Pt is feeling slightly better in that she feels somewhat less weak. She also states she has slightly less R maxilla/tooth pain and she feels there is less swelling. Objective Active Medications: Acetaminophen (Tylenol Tab*) 650 mg PO Q6H PRN PRN Reason: FEVER/PAIN Last Admin: 06/22/17 00:33 Dose: 650 mg Docusate Sodium (Colace Cap*) 200 mg PO BID PRN PRN Reason: CONSTIPATION Heparin Sodium (Porcine) (Heparin Vial(*)) 5,000 units SUBCUT Q8HR [facility] Last Admin: 06/22/17 05:36 Dose: 5,000 units Levofloxacin/Dextrose (Levaquin 500 Mg Ivpremix(*)) 500 mg in 100 mls @ 100 mls /hr IVPB Q24H [facility] Last Admin: 06/22/17 04:11 Dose: 100 mls/hr Insulin Human Lispro (Humalog*) 0 units SUBCUT ACHS [facility] PRN Reason: Protocol Last Admin: 06/22/17 07:42 Dose: Not Given Melatonin (Melatonin (Nf)) 3 mg PO BEDTIME PRN; Protocol PRN Reason: Sleep Metronidazole (Flagyl Tab*) 500 mg PO BID [facility] Last Admin: 06/22/17 09:11 Dose: 500 mg Montelukast Sodium (Singulair Tab*) 10 mg PO DAILY [facility] Last Admin: 06/22/17 09:11 Dose: 10 mg Ondansetron HCl (Zofran Inj*) 4 mg IV Q6H PRN PRN Reason: NAUSEA Oseltamivir Phosphate (Tamiflu Cap*) 75 mg PO BID [facility] Stop: 06/25/17 21:01 Last Admin: 06/22/17 09:11 Dose: 75 mg Oxycodone HCl (Roxycodone Tab*) 5 mg PO Q4H PRN PRN Reason: PAIN (DENTAL) Last Admin: 06/21/17 14:26 Dose: 5 mg Sertraline HCl (Zoloft*) 50 mg PO DAILY [facility] Last Admin: 06/22/17 09:11 Dose: 50 mg Sodium Chloride (Sodium Chloride 0.65% Nasal [place]*) 2 spray BOTH NARES Q2H PRN PRN Reason: dryness Spironolactone (Aldactone Tab*) 25 mg PO DAILY [facility] Last Admin: 06/22/17 09:11 Dose: 25 mg Vital Signs - 8 hr 06/22/17 06/22/17 06/22/17 03:42 07:37 07:43 Temperature 98.9 F 97.3 F Pulse Rate 69 67 Respiratory 16 18 16 Rate Blood Pressure 123/47 125/51 (mmHg) O2 Sat by Pulse 94 95 Oximetry Oxygen Devices in Use Now: Nasal Cannula Appearance: Elderly female sitting in a chair, NAD Eyes: No Scleral Icterus Ears/Nose/Mouth/Throat: Mucous Membranes Moist Respiratory: Symmetrical Chest Expansion and Respiratory Effort, - - bibasilar crackles unchanged from yesterday Cardiovascular: NL Sounds; No Murmurs; No JVD, RRR, No Edema Abdominal: NL Sounds; No Tenderness; No Distention Extremities: No Clubbing, Cyanosis Skin: No Rash or Ulcers, No Nodules or Sclerosis Neurological: Alert and Oriented x 3 Result Diagrams: 06/22/17 05:20 06/22/17 05:19 Additional Lab and Data: Lab Results 06/20/17 06/20/17 06/20/17 Range/Units 02:58 02:58 02:58 WBC 13.4 H (3.5-10.8) 10^3/ul RBC 4.50 (4.0-5.4) 10^6/ul Hgb 13.5 (12.0-16.0) g/dl Hct 42 (35-47) % MCV 92 (80-97) fL MCH 30 (27-31) pg MCHC 33 (31-36) g/dl RDW 14 (10.5-15) % Plt Count 277 (150-450) 10^3/ul MPV 8 (7.4-10.4) um3 Neut % (Auto) 84.5 H (38-83) % Lymph % (Auto) 7.9 L (25-47) % [place] % (Auto) 7.3 (1-9) % Eos % (Auto) 0 (0-6) % Baso % (Auto) 0.3 (0-2) % Absolute Neuts (auto) 11.3 H (1.5-7.7) 10^3/ul Absolute Lymphs (auto) 1.1 (1.0-4.8) 10^3/ul Absolute Monos (auto) 1.0 H (0-0.8) 10^3/ul Absolute Eos (auto) 0 (0-0.6) 10^3/ul Absolute Basos (auto) 0 (0-0.2) 10^3/ul Absolute Nucleated RBC 0 10^3/ul Nucleated RBC % 0 INR (Anticoag Therapy) 1.14 H (0.77-1.02) APTT 28.2 (26.0-36.3) seconds Sodium (133-145) mmol/L Potassium (3.5-5.0) mmol/L Chloride (101-111) mmol/L Carbon Dioxide (22-32) mmol/L Anion Gap (2-11) mmol/L BUN (6-24) mg/dL Creatinine (0.51-0.95) mg/dL Est GFR ( Amer) (>60) Est GFR (Non-Af Amer) (>60) BUN/Creatinine Ratio (8-20) Glucose (70-100) mg/dL Lactic Acid (0.5-2.0) mmol/L Calcium (8.6-10.3) mg/dL Magnesium (1.9-2.7) mg/dL Total Bilirubin (0.2-1.0) mg/dL AST (13-39) U/L ALT (7-52) U/L Alkaline Phosphatase (34-104) U/L Troponin I (<0.04) ng/mL B-Natriuretic Peptide 45 ( - 100) pg/mL Total Protein (6.4-8.9) g/dL Albumin (3.2-5.2) g/dL Globulin (2-4) g/dL Albumin/Globulin Ratio (1-3) Influenza A (Rapid) (Negative) Influenza B (Rapid) (Negative) 06/20/17 06/20/17 06/20/17 Range/Units 02:58 02:58 03:24 WBC (3.5-10.8) 10^3/ul RBC (4.0-5.4) 10^6/ul Hgb (12.0-16.0) g/dl Hct (35-47) % MCV (80-97) fL MCH (27-31) pg MCHC (31-36) g/dl RDW (10.5-15) % Plt Count (150-450) 10^3/ul MPV (7.4-10.4) um3 Neut % (Auto) (38-83) % Lymph % (Auto) (25-47) % [place] % (Auto) (1-9) % Eos % (Auto) (0-6) % Baso % (Auto) (0-2) % Absolute Neuts (auto) (1.5-7.7) 10^3/ul Absolute Lymphs (auto) (1.0-4.8) 10^3/ul Absolute Monos (auto) (0-0.8) 10^3/ul Absolute Eos (auto) (0-0.6) 10^3/ul Absolute Basos (auto) (0-0.2) 10^3/ul Absolute Nucleated RBC 10^3/ul Nucleated RBC % INR (Anticoag Therapy) (0.77-1.02) APTT (26.0-36.3) seconds Sodium 134 (133-145) mmol/L Potassium 3.3 L (3.5-5.0) mmol/L Chloride 98 L (101-111) mmol/L Carbon Dioxide 25 (22-32) mmol/L Anion Gap 11 (2-11) mmol/L BUN 17 (6-24) mg/dL Creatinine 0.78 (0.51-0.95) mg/dL Est GFR ( Amer) 92.6 (>60) Est GFR (Non-Af Amer) 72.0 (>60) BUN/Creatinine Ratio 21.8 H (8-20) Glucose 179 H (70-100) mg/dL Lactic Acid 1.2 (0.5-2.0) mmol/L Calcium 9.5 (8.6-10.3) mg/dL Magnesium 1.5 L (1.9-2.7) mg/dL Total Bilirubin 0.60 (0.2-1.0) mg/dL AST 17 (13-39) U/L ALT 16 (7-52) U/L Alkaline Phosphatase 42 (34-104) U/L Troponin I 0.00 (<0.04) ng/mL B-Natriuretic Peptide ( - 100) pg/mL Total Protein 7.0 (6.4-8.9) g/dL Albumin 4.1 (3.2-5.2) g/dL Globulin 2.9 (2-4) g/dL Albumin/Globulin Ratio 1.4 (1-3) Influenza A (Rapid) Negative (Negative) Influenza B (Rapid) Negative (Negative) Microbiology and Other Data: Microbiology 06/20/17 10:05 Urine Culture - Final Urine 06/20/17 14:40 Aerobic Blood Culture - Preliminary Blood Venous No Growth Day 1 Anaerobic Blood Culture - Preliminary No Growth Day 1 06/20/17 03:58 Aerobic Blood Culture - Preliminary Blood Venous No Growth Day 1 Anaerobic Blood Culture - Preliminary No Growth Day 1 06/20/17 03:58 Aerobic Blood Culture - Preliminary Blood Venous No Growth Day 1 Anaerobic Blood Culture - Preliminary No Growth Day 1 Assess/Plan/Problems-Billing Ms Watts is a 76 year old female with complaint of weakness after a dizzy spell with subsquent fall who reports dental issues for which she was supposed to see dentist, now with fever, chills and increased pain and facial sensitivity. - Patient Problems (1) Fever of unknown origin Current Visit: Yes Status: Acute Comment: The patient continues to have fevers. I have started tamiflu 75mg BID for possible influenza with a negative swab. Continue levaquin and flagyl for possible sinusitis/dental infection. Will have Dr. Pena see the patient for further recommendations. Her WBC count has normalized but her CRP is markedly elevated. (2) Interstitial lung disease Current Visit: Yes Status: Acute Code(s): J84.9 - INTERSTITIAL PULMONARY DISEASE, UNSPECIFIED SNOMED Code(s): 884589257 Comment: Continue 3L O2-home setting. No significant SOB at this time. Home meds have not been reconciled. I have requested a home medication list from her PCPs office to resume her usual home inhalers. (3) Depression Current Visit: Yes Status: Acute Code(s): F32.9 - MAJOR DEPRESSIVE DISORDER , SINGLE EPISODE, UNSPECIFIED SNOMED Code(s): 74437273 Comment: Continue sertraline 50mg daily. (4) Diabetes mellitus Current Visit: Yes Status: Acute Code(s): E11.9 - TYPE 2 DIABETES MELLITUS WITHOUT COMPLICATIONS SNOMED Code(s): 86818654 Comment: Sugars are under good control. Continue lispro sliding scale. Home meds to be initiated once the list is reconcilled. (5) Hypertension Current Visit: Yes Status: Acute Code(s): I10 - ESSENTIAL (PRIMARY) HYPERTENSION SNOMED Code(s): 24439857 Comment: BP is under good control. Will continue the home medication regimen - will be updated today. (6) DVT prophylaxis Current Visit: Yes Status: Acute Code(s): TYV5345 - SNOMED Code(s): 338372429 Comment: SQ heparin (7) Full code status Current Visit: Yes Status: Acute Code(s): Z78.9 - OTHER SPECIFIED HEALTH STATUS SNOMED Code(s): 953050371 Status and Disposition: .
[2017-06-22] MEDS ORDERED: Albuterol HFA INHALER* 8 gm MDI INH PRN (13:19)
[2017-06-22] MEDS: predniSONE TAB* 10 MG PO SCH (14:24)
[2017-06-22] MEDS: Theophylline TAB* 300 MG PO SCH (14:25)
--- NOTE | 2017-06-22 16:30 | CONS ---
CONSULTATION REPORT: DATE OF CONSULT: 06/22/17 REQUESTING PHYSICIAN: Dr. Doran. CONSULTING SERVICE: Infectious Disease. REASON FOR CONSULT: Fever, myalgia, right facial pain. IMPRESSION: 1. Three days of fever, myalgia, malaise. Influenza PCR negative, though I agree with Dr. Doran it could be a false negative, though it is less common with the influenza PCR, it is still a possibilit y. She does have some tenderness over the right maxillary sinus, could have sinusitis as well. 2. Allergy to KEFLEX and CLINDAMYCIN, both cause anaphylaxis. 3. Interstitial lung disease, on chronic supplemental oxygen. 4. Diabetes. RECOMMENDATIONS: Continue her Tamiflu, Levaquin, and Flagyl and could change Levaquin to oral as maame g as she is continuing to improve. HISTORY OF PRESENT ILLNESS: This is a 76-year-old woman with diabetes and chronic steroid therapy ad mitted with fever, myalgia, malaise that started over the weekend and worsened on Monday which led he r to come to the hospital on Monday. She was found to have a white count of 13,000. She was started on broad spectrum antibiotics. She was febrile and that persisted yesterday as well. She had a CT of the maxillofacial area given her right facial pain that feels like previous dental abscesses. The re was no dental abscess. There was some scattered sinusitis. White count yesterday was down to 4. Her CRP went from 172 on the to 195 on the . Today her fever and chills and malaise has fe lt better. Myalgia is nearly gone. She has had no diarrhea or vomiting. Facial pain is about the sa me. PAST MEDICAL HISTORY: 1. Type 2 diabetes. 2. Obesity. 3. Interstitial lung disease, on supplemental oxygen. 4. Hypertension. 5. Hyperlipidemia. 6. Irritable bowel syndrome. 7. Depression. ALLERGIES: To KEFLEX and CLINDAMYCIN, both cause anaphylaxis. Lactose intolerance. FAMILY HISTORY: Lung cancer and hypertension. SOCIAL HISTORY: She lives in [place] with her partner. Nonsmoker, no alcohol, no travel. There are 2 cats at home. REVIEW OF SYSTEMS: A 14-point review of systems was negative except as noted above. PHYSICAL EXAM: Vital Signs: Temperature is 36.3, heart rate 70, respiratory rate 16, blood pressure 125/51, O2 sat 95% on 3 L, T-max 39.1 overnight. In general, she is awake, not in distress. Neurol ogic: She is oriented x3. Follows all commands. HEENT: There is no conjunctival hemorrhage. Orop harynx without lesions. There is right facial tenderness to palpation below the zygomatic arch. Hear t: Regular rate and rhythm without murmurs, rubs, or gallops. Lungs: Clear to auscultation bilater ally. Abdomen: Soft, nontender, and nondistended. There are bowel sounds present. Skin: There is no rash or splinter hemorrhages. Musculoskeletal: There is no spine tenderness to palpation or join t synovitis. DIAGNOSTIC STUDIES/LAB DATA: Creatinine 0.5, CRP 195, white blood cell count 4.8, hemoglobin 11.8, p latelets 254,00. Please see impressions and recommendations outlined above. Thanks for asking me to see Ms. Watts in consultation. [id number]/[facility] #: [id number]
[2017-06-22] MEDS: metFORMIN* 500 MG TAB PO SCH (20:50)
[2017-06-23] MEDS: Levofloxacin 500 MG IVPREMIX(* 500 MG/100 ML BAG IVPB SCH (03:55)
[2017-06-23] MEDS: Heparin VIAL(*) 5000 UNITS/ML VIAL (FIVE THOUSAND) SUBCUT SCH ×2 (05:28→14:08)
[2017-06-23 05:45] LABS: Hematocrit 35 % (35-47); Hemoglobin 11.7 g/dl (12.0-16.0); Mean Corpuscular HGB Conc 33 g/dl (31-36); Mean Corpuscular Hemoglobin 30 pg (27-31); Mean Corpuscular Volume 91 fL (80-97); Mean Platelet Volume 8 um3 (7.4-10.4); Red Blood Count 3.89 10^6/ul (4.0-5.4); Red Cell Distribution Width 14 % (10.5-15)
[2017-06-23] MEDS: Insulin LISPRO* 1 UNITS UNIT SUBCUT SCH ×2 (08:36→12:51)
[2017-06-23] MEDS ORDERED: Montelukast Sodium TAB* 10 MG PO SCH (09:00)
[2017-06-23] MEDS: predniSONE TAB* 10 MG PO SCH (09:53)
[2017-06-23] MEDS: Montelukast Sodium TAB* 10 MG PO SCH (09:53)
[2017-06-23] MEDS: Sertraline* 50 MG TAB PO SCH (09:54)
[2017-06-23] MEDS: metroNIDAZOLE TAB* 250 MG PO SCH (09:54)
[2017-06-23] MEDS: metFORMIN* 500 MG TAB PO SCH (09:54)
[2017-06-23] MEDS: Spironolactone TAB* 25 MG PO SCH (09:54)
[2017-06-23] MEDS: Oseltamivir CAP* 75 MG PO SCH (09:54)
[2017-06-23] MEDS: Theophylline TAB* 300 MG PO SCH (09:54)
--- NOTE | 2017-06-23 11:42 | PN ---
Subjective Date of Service: 06/23/17 Interval History: Pt is feeling well. She wants to go home. Her breathing is comfortable. She states she feels much better and thinks she can manage at home. Objective Active Medications: Acetaminophen (Tylenol Tab*) 650 mg PO Q6H PRN PRN Reason: FEVER/PAIN Last Admin: 06/22/17 20:50 Dose: 650 mg Albuterol (Ventolin Hfa Inhaler*) 2 puff INH Q3H PRN PRN Reason: SOB/WHEEZING Docusate Sodium (Colace Cap*) 200 mg PO BID PRN PRN Reason: CONSTIPATION Heparin Sodium (Porcine) (Heparin Vial(*)) 5,000 units SUBCUT Q8HR [facility] Last Admin: 06/23/17 05:28 Dose: 5,000 units Levofloxacin/Dextrose (Levaquin 500 Mg Ivpremix(*)) 500 mg in 100 mls @ 100 mls /hr IVPB Q24H [facility] Last Admin: 06/23/17 03:55 Dose: 100 mls/hr Insulin Human Lispro (Humalog*) 0 units SUBCUT ACHS [facility] PRN Reason: Protocol Last Admin: 06/23/17 08:36 Dose: Not Given Melatonin (Melatonin (Nf)) 3 mg PO BEDTIME PRN; Protocol PRN Reason: Sleep Metformin HCl (Glucophage*) 500 mg PO BID [facility] Last Admin: 06/23/17 09:54 Dose: 500 mg Metronidazole (Flagyl Tab*) 500 mg PO BID [facility] Last Admin: 06/23/17 09:54 Dose: 500 mg Montelukast Sodium (Singulair Tab*) 10 mg PO DAILY [facility] Last Admin: 06/23/17 09:53 Dose: 10 mg Montelukast Sodium (Singulair Tab*) 10 mg PO DAILY [facility] Last Admin: 06/23/17 09:57 Dose: Not Given Ondansetron HCl (Zofran Inj*) 4 mg IV Q6H PRN PRN Reason: NAUSEA Oseltamivir Phosphate (Tamiflu Cap*) 75 mg PO BID [facility] Stop: 06/25/17 21:01 Last Admin: 06/23/17 09:54 Dose: 75 mg Oxycodone HCl (Roxycodone Tab*) 5 mg PO Q4H PRN PRN Reason: PAIN (DENTAL) Last Admin: 06/21/17 14:26 Dose: 5 mg Prednisone (Deltasone Tab*) 10 mg PO QAM [facility] Last Admin: 06/23/17 09:53 Dose: 10 mg Sertraline HCl (Zoloft*) 50 mg PO DAILY [facility] Last Admin: 06/23/17 09:54 Dose: 50 mg Sodium Chloride (Sodium Chloride 0.65% Nasal [place]*) 2 spray BOTH NARES Q2H PRN PRN Reason: dryness Spironolactone (Aldactone Tab*) 25 mg PO DAILY [facility] Last Admin: 06/23/17 09:54 Dose: 25 mg Theophylline ([place]*) 300 mg PO DAILY [facility] Last Admin: 06/23/17 09:54 Dose: 300 mg Vital Signs - 8 hr 06/23/17 06/23/17 06/23/17 03:58 07:33 08:00 Temperature 98.1 F 97.8 F Pulse Rate 52 74 Respiratory 16 18 18 Rate Blood Pressure 137/63 148/57 (mmHg) O2 Sat by Pulse 97 94 Oximetry Oxygen Devices in Use Now: Nasal Cannula Appearance: Elderly female sitting in a chair, NAD Eyes: No Scleral Icterus Ears/Nose/Mouth/Throat: Mucous Membranes Moist Respiratory: Symmetrical Chest Expansion and Respiratory Effort, Clear to Auscultation - with bibasilar crackles Cardiovascular: NL Sounds; No Murmurs; No JVD, RRR, No Edema Abdominal: NL Sounds; No Tenderness; No Distention Extremities: No Clubbing, Cyanosis Skin: No Rash or Ulcers, No Nodules or Sclerosis Neurological: Alert and Oriented x 3 Result Diagrams: 06/23/17 05:23 06/22/17 05:19 Additional Lab and Data: Lab Results 06/20/17 06/20/17 06/20/17 Range/Units 02:58 02:58 02:58 WBC 13.4 H (3.5-10.8) 10^3/ul RBC 4.50 (4.0-5.4) 10^6/ul Hgb 13.5 (12.0-16.0) g/dl Hct 42 (35-47) % MCV 92 (80-97) fL MCH 30 (27-31) pg MCHC 33 (31-36) g/dl RDW 14 (10.5-15) % Plt Count 277 (150-450) 10^3/ul MPV 8 (7.4-10.4) um3 Neut % (Auto) 84.5 H (38-83) % Lymph % (Auto) 7.9 L (25-47) % [place] % (Auto) 7.3 (1-9) % Eos % (Auto) 0 (0-6) % Baso % (Auto) 0.3 (0-2) % Absolute Neuts (auto) 11.3 H (1.5-7.7) 10^3/ul Absolute Lymphs (auto) 1.1 (1.0-4.8) 10^3/ul Absolute Monos (auto) 1.0 H (0-0.8) 10^3/ul Absolute Eos (auto) 0 (0-0.6) 10^3/ul Absolute Basos (auto) 0 (0-0.2) 10^3/ul Absolute Nucleated RBC 0 10^3/ul Nucleated RBC % 0 INR (Anticoag Therapy) 1.14 H (0.77-1.02) APTT 28.2 (26.0-36.3) seconds Sodium (133-145) mmol/L Potassium (3.5-5.0) mmol/L Chloride (101-111) mmol/L Carbon Dioxide (22-32) mmol/L Anion Gap (2-11) mmol/L BUN (6-24) mg/dL Creatinine (0.51-0.95) mg/dL Est GFR ( Amer) (>60) Est GFR (Non-Af Amer) (>60) BUN/Creatinine Ratio (8-20) Glucose (70-100) mg/dL Lactic Acid (0.5-2.0) mmol/L Calcium (8.6-10.3) mg/dL Magnesium (1.9-2.7) mg/dL Total Bilirubin (0.2-1.0) mg/dL AST (13-39) U/L ALT (7-52) U/L Alkaline Phosphatase (34-104) U/L Troponin I (<0.04) ng/mL B-Natriuretic Peptide 45 ( - 100) pg/mL Total Protein (6.4-8.9) g/dL Albumin (3.2-5.2) g/dL Globulin (2-4) g/dL Albumin/Globulin Ratio (1-3) Influenza A (Rapid) (Negative) Influenza B (Rapid) (Negative) 06/20/17 06/20/17 06/20/17 Range/Units 02:58 02:58 03:24 WBC (3.5-10.8) 10^3/ul RBC (4.0-5.4) 10^6/ul Hgb (12.0-16.0) g/dl Hct (35-47) % MCV (80-97) fL MCH (27-31) pg MCHC (31-36) g/dl RDW (10.5-15) % Plt Count (150-450) 10^3/ul MPV (7.4-10.4) um3 Neut % (Auto) (38-83) % Lymph % (Auto) (25-47) % [place] % (Auto) (1-9) % Eos % (Auto) (0-6) % Baso % (Auto) (0-2) % Absolute Neuts (auto) (1.5-7.7) 10^3/ul Absolute Lymphs (auto) (1.0-4.8) 10^3/ul Absolute Monos (auto) (0-0.8) 10^3/ul Absolute Eos (auto) (0-0.6) 10^3/ul Absolute Basos (auto) (0-0.2) 10^3/ul Absolute Nucleated RBC 10^3/ul Nucleated RBC % INR (Anticoag Therapy) (0.77-1.02) APTT (26.0-36.3) seconds Sodium 134 (133-145) mmol/L Potassium 3.3 L (3.5-5.0) mmol/L Chloride 98 L (101-111) mmol/L Carbon Dioxide 25 (22-32) mmol/L Anion Gap 11 (2-11) mmol/L BUN 17 (6-24) mg/dL Creatinine 0.78 (0.51-0.95) mg/dL Est GFR ( Amer) 92.6 (>60) Est GFR (Non-Af Amer) 72.0 (>60) BUN/Creatinine Ratio 21.8 H (8-20) Glucose 179 H (70-100) mg/dL Lactic Acid 1.2 (0.5-2.0) mmol/L Calcium 9.5 (8.6-10.3) mg/dL Magnesium 1.5 L (1.9-2.7) mg/dL Total Bilirubin 0.60 (0.2-1.0) mg/dL AST 17 (13-39) U/L ALT 16 (7-52) U/L Alkaline Phosphatase 42 (34-104) U/L Troponin I 0.00 (<0.04) ng/mL B-Natriuretic Peptide ( - 100) pg/mL Total Protein 7.0 (6.4-8.9) g/dL Albumin 4.1 (3.2-5.2) g/dL Globulin 2.9 (2-4) g/dL Albumin/Globulin Ratio 1.4 (1-3) Influenza A (Rapid) Negative (Negative) Influenza B (Rapid) Negative (Negative) Microbiology and Other Data: Microbiology 06/20/17 10:05 Urine Culture - Final Urine 06/20/17 14:40 Aerobic Blood Culture - Preliminary Blood Venous No Growth Day 1 Anaerobic Blood Culture - Preliminary No Growth Day 1 06/20/17 03:58 Aerobic Blood Culture - Preliminary Blood Venous No Growth Day 1 Anaerobic Blood Culture - Preliminary No Growth Day 1 06/20/17 03:58 Aerobic Blood Culture - Preliminary Blood Venous No Growth Day 1 Anaerobic Blood Culture - Preliminary No Growth Day 1 Assess/Plan/Problems-Billing Ms Watts is a 76 year old female with complaint of weakness after a dizzy spell with subsquent fall who reports dental issues for which she was supposed to see dentist, now with fever, chills and increased pain and facial sensitivity. - Patient Problems (1) Fever of unknown origin Current Visit: Yes Status: Acute Comment: Fever has subsided. Will continue tamiflu, levaquin and flagyl as it is unclear what drove her fever. She will follow up with her dentist after discharge for concerns about her crown/tooth pain. (2) Interstitial lung disease Current Visit: Yes Status: Acute Code(s): J84.9 - INTERSTITIAL PULMONARY DISEASE, UNSPECIFIED SNOMED Code(s): 625564505 Comment: Continue 3L O2-home setting. No significant SOB at this time. Continue home meds. (3) Depression Current Visit: Yes Status: Acute Code(s): F32.9 - MAJOR DEPRESSIVE DISORDER , SINGLE EPISODE, UNSPECIFIED SNOMED Code(s): 35994264 Comment: Continue sertraline 50mg daily. (4) Diabetes mellitus Current Visit: Yes Status: Acute Code(s): E11.9 - TYPE 2 DIABETES MELLITUS WITHOUT COMPLICATIONS SNOMED Code(s): 08739439 Comment: Sugars are under good control. Continue metformin. (5) Hypertension Current Visit: Yes Status: Acute Code(s): I10 - ESSENTIAL (PRIMARY) HYPERTENSION SNOMED Code(s): 95911931 Comment: BP is under good control. Will continue the home medication regimen. (6) DVT prophylaxis Current Visit: Yes Status: Acute Code(s): ZUJ2791 - SNOMED Code(s): 607283948 Comment: SQ heparin (7) Full code status Current Visit: Yes Status: Acute Code(s): Z78.9 - OTHER SPECIFIED HEALTH STATUS SNOMED Code(s): 618949971 Status and Disposition: d/c home
[2017-06-23 15:19] VITALS: BP 120/61
--- NOTE | 2017-06-24 02:58 | DS ---
CC: Dr. Iverson * DISCHARGE SUMMARY: DATE OF ADMISSION: 06/20/17 DATE OF DISCHARGE: 06/23/17 PRIMARY CARE PROVIDER: Dr. Iverson. PRINCIPAL DIAGNOSIS: Possible influenza versus acute sinusitis versus dental infection as cause of prolonged fever. SECONDARY DIAGNOSES: 1. Interstitial lung disease, requiring 3 L O2 continuously for chronic hypoxic respiratory failure. 2. Type 2 diabetes. 3. Hypertension. 4. Hyperlipidemia. 5. Depression. DISCHARGE MEDICATIONS: 1. Anoro Ellipta 1 puff inhaled daily. 2. Theophylline 300 mg p.o. daily. 3. Triamcinolone nasal spray 2 puffs both nostrils daily. 4. Calcium plus D 1 tab p.o. daily. 5. Albuterol 2 puffs inhaled q.3 hours p.r.n. shortness of breath. 6. Spironolactone 25 mg p.o. daily. 7. Simvastatin 20 mg p.o. q.h.s. 8. Prednisone 10 mg p.o. daily. 9. Metformin 500 mg p.o. twice daily. 10. Sertraline 50 mg p.o. daily. 11. Potassium chloride 10 mEq p.o. daily. 12. Singulair 10 mg p.o. daily. 13. Fexofenadine 180 mg p.o. daily. 14. Multivitamin 1 tab p.o. daily. 15. Flagyl 500 mg p.o. twice daily x10 doses. 16. Levofloxacin 500 mg p.o. daily x3 doses. 17. Tamiflu 75 mg p.o. twice daily x5 doses. HOSPITAL COURSE: Ms. Watts is a 76-year-old female, who presented to the emergency room on 06/20/17 with complaints of dizziness and fall. The patient felt this is possibly due to dental infection as she has had pain in her right maxilla. The patient developed a fever of initially 100.7 in the emergency room though this peaked at 103.0. The patient was admitted and started on levofloxacin for what was initially suspected to be a urinary tract infection. With further history and the complaints of the dental pain, decision was made to obtain a maxillofacial CT. This was performed on 06/20/17 in the afternoon. This revealed no evidence of soft tissue abscess. There are findings of mild acute and chronic sinusitis. A prominent right submandibular gland is noted. Left submandibular gland was not seen. Goiter is suspected. It is felt that this can be re-evaluated on a non- emergent basis with a thyroid ultrasound. The day following admission, the patient continued to complain of tooth/right maxilla pain. She continued to have fevers despite being on levofloxacin for approximately 24 hours. Because of the ongoing fever and the patient's description of feeling generalized weakness, achiness, chills, and sweats, the decision was made to start the patient on Tamiflu for possible influenza despite her influenza swab being negative. Additionally, as there was concern for possible dental infection, Flagyl was added to the Levaquin. The patient did finally have improvement in her fever curve. She has been afebrile for approximately 24 hours at the time of my evaluation on the day of discharge. The patient in general felt much improved. The decision was made to discharge the patient home to complete the Flagyl, Levaquin, and Tamiflu. The patient will follow up with the dentist as an outpatient. The patient did have an elevated white blood cell count on admission and this trended down to normal. Her CRP was also markedly elevated in the 172 up to 195 range. This can be followed up as an outpatient as clinically the patient was improved. At this point, the patient is felt to be stable for discharge home. FOLLOWUP CONCERNS: The patient is being discharged home today, 06/23/17. ACTIVITY LEVEL: As tolerated. DIET: Diabetic. CONDITION ON DISCHARGE: Stable. FOLLOWUP: The patient should follow up with Dr. Iverson in the next 4 to 7 days. TIME SPENT: Thirty-five minutes was spent discharging this patient. [id number]/[facility] #: [id number] [facility]ITAL[facility]
== END 2017-06-23 16:18 | disposition home or self-care (01) | DRG 158 ==
LOC: ED 02:44 → SSU 03:57
PROVIDERS: ADMIT Hospitalist; ATTEND Hospitalist
DX: K04.7 Periapical abscess without sinus (principal); J84.9 Interstitial pulmonary disease, unspecified; J96.11 Chronic respiratory failure with hypoxia; Z99.81 Dependence on supplemental oxygen; J01.00 Acute maxillary sinusitis, unspecified; E11.9 Type 2 diabetes mellitus without complications; E04.9 Nontoxic goiter, unspecified; J11.1 Influenza due to unidentified influenza virus with other respiratory manifestations; J44.9 Chronic obstructive pulmonary disease, unspecified; E66.9 Obesity, unspecified; J32.0 Chronic maxillary sinusitis; M15.9 Polyosteoarthritis, unspecified; I10 Essential (primary) hypertension; K58.9 Irritable bowel syndrome, unspecified; G43.909 Migraine, unspecified, not intractable, without status migrainosus; F32.9 Major depressive disorder, single episode, unspecified; K44.9 Diaphragmatic hernia without obstruction or gangrene; E78.5 Hyperlipidemia, unspecified; Z88.1 Allergy status to other antibiotic agents; Z91.018 Allergy to other foods; Z91.048 Other nonmedicinal substance allergy status; Z98.42 Cataract extraction status, left eye; Z98.41 Cataract extraction status, right eye; Z82.49 Family history of ischemic heart disease and other diseases of the circulatory system; Z80.3 Family history of malignant neoplasm of breast; Z79.52 Long term (current) use of systemic steroids; Z80.6 Family history of leukemia; Z80.1 Family history of malignant neoplasm of trachea, bronchus and lung; Z68.38 Body mass index [BMI] 38.0-38.9, adult
CPT/HCPCS: 36415; 70487; 71010; 80048; 80053; 81003; 81015; 82565; 83605; 83735; 83880; 84484; 84520; 85025; 85610; 85730; 86140; 87040; 87086; 87502; 93005; 94760; A9270-GY; J1644; J1956; J2405; J3475; J7512; Q9967

== ENCOUNTER 2021-05-07 23:00 | Inpatient (IN) ==
[2021-05-08 00:15] LABS: ABS Lymphocytes 0.4 10^3/ul (1.0-4.8); ABS Monocytes 0.7 10^3/ul (0-0.8); ABS Neutrophils 7.6 10^3/ul (1.5-7.7); Hematocrit 40 % (35-47); Hemoglobin 13.2 g/dL (12.0-16.0); Lymphocyte % 4.9 %; Mean Corpuscular HGB Conc 33 g/dL (31-36); Mean Corpuscular Hemoglobin 29 pg (27-31); Mean Corpuscular Volume 86 fL (80-97); Mean Platelet Volume 7.2 fL (7.4-10.4); Platelet Count 303 10^3/uL (150-450); Red Blood Count 4.58 10^6 /uL (3.70-4.87); Red Cell Distribution Width 15 % (10-15); White Blood Count 8.8 10^3/uL (3.5-10.8)
[2021-05-08 00:31] LABS: ALT 23 U/L (7-52); AST 34 U/L (13-39); Albumin 3.6 g/dL (3.2-5.2); Albumin/Globulin Ratio 1.1 (1-3); Alkaline Phosphatase 56 U/L (35-149); Anion Gap 10 mmol/L (2-11); Blood Urea Nitrogen 30 mg/dL (6-24); CO2 Carbon Dioxide 26 mmol/L (22-32); Calcium 9.6 mg/dL (8.6-10.3); Chloride 99 mmol/L (101-111); Creatine Kinase 568 U/L (10-223); Globulin 3.2 g/dL (2-4); Glucose 200 mg/dL (70-100); Potassium 3.5 mmol/L (3.5-5.0); Sodium 135 mmol/L (135-145); Total Protein 6.8 g/dL (6.4-8.9)
[2021-05-08] MEDS ORDERED: Lactated Ringers 1000 ml BAG 1,000 ML IV ONE (02:57)
[2021-05-08 06:07] LABS: Urine Appearance Cloudy; Urine Bilirubin Negative (Negative); Urine Blood 2+ (Negative); Urine Color Amber; Urine Glucose Negative (Negative); Urine Ketones 1+ (Negative); Urine Nitrite Negative (Negative); Urine Protein 1+(30 mg/dL) (Negative); Urine Specific Gravity 1.021 (1.002-1.030); Urine Urobilinogen Negative (Negative)
[2021-05-08 06:10] LABS: Urine Bacteria 1+ (Absent); Urine Red Blood Cell 3+(>10/hpf) (Absent); Urine Squamous Epithelial Cell Present (Absent); Urine White Blood Cell 1+(6-10/hpf) (Absent)
[2021-05-08] MEDS ORDERED: Albuterol HFA INHALER 8 gm MDI INH PRN (13:55)
[2021-05-08] MEDS ORDERED: NS 0.9% 1000 ml BAG 1,000 ML IV SCH (14:00)
[2021-05-08] MEDS ORDERED: Dextrose 50% Syringe 50 ml 25 GM/50 ML SYRINGE IV PUSH PRN (14:24)
[2021-05-08 14:35] LABS: Troponin I 0.07 ng/mL (<0.03)
[2021-05-08 16:00] LABS: Troponin I 0.05 ng/mL (<0.03)
[2021-05-08 16:50] LABS: Rapid COVID-19 Molecular Undetected (Undetected)
[2021-05-08] MEDS: Heparin 5000 UNITS/ML 1 mL VIAL SUBCUT SCH ×2 (18:14→23:24)
[2021-05-08 20:48] LABS: Troponin I 0.05 ng/mL (<0.03)
[2021-05-08] MEDS: Nystatin SUSPENSION 100,000 UNITS/ML UDC PO SCH ×2 (23:23→23:28)
[2021-05-09] MEDS: Heparin 5000 UNITS/ML 1 mL VIAL SUBCUT SCH ×3 (06:00→22:17)
[2021-05-09 06:11] LABS: ABS Lymphocytes 0.8 10^3/ul (1.0-4.8); ABS Monocytes 0.5 10^3/ul (0-0.8); Eosinophil % 0.1 %; Hematocrit 34 % (35-47); Hemoglobin 10.9 g/dL (12.0-16.0); Lymphocyte % 15.4 %; Mean Corpuscular HGB Conc 33 g/dL (31-36); Mean Corpuscular Hemoglobin 29 pg (27-31); Mean Corpuscular Volume 88 fL (80-97); Mean Platelet Volume 8.1 fL (7.4-10.4); Platelet Count 256 10^3/uL (150-450); Red Blood Count 3.83 10^6 /uL (3.70-4.87); Red Cell Distribution Width 15 % (10-15); White Blood Count 5.3 10^3/uL (3.5-10.8)
[2021-05-09 06:28] LABS: Calcium 8.8 mg/dL (8.6-10.3); Potassium 3.5 mmol/L (3.5-5.0)
[2021-05-09] MEDS: Tiotropium Brom/Olodaterol MDI INH SCH (09:03)
[2021-05-09] MEDS: Nystatin SUSPENSION 100,000 UNITS/ML UDC PO SCH ×4 (09:24→22:18)
[2021-05-10 05:54] LABS: ABS Lymphocytes 1.5 10^3/ul (1.0-4.8); ABS Monocytes 0.5 10^3/ul (0-0.8); ABS Neutrophils 3.6 10^3/ul (1.5-7.7); Eosinophil % 0.6 %; Hematocrit 32 % (35-47); Hemoglobin 10.6 g/dL (12.0-16.0); Mean Corpuscular HGB Conc 33 g/dL (31-36); Mean Corpuscular Hemoglobin 29 pg (27-31); Mean Corpuscular Volume 88 fL (80-97); Mean Platelet Volume 7.7 fL (7.4-10.4); Platelet Count 292 10^3/uL (150-450); Red Blood Count 3.67 10^6 /uL (3.70-4.87); Red Cell Distribution Width 15 % (10-15); White Blood Count 5.6 10^3/uL (3.5-10.8)
[2021-05-10] MEDS: Heparin 5000 UNITS/ML 1 mL VIAL SUBCUT SCH ×2 (06:02→12:57)
[2021-05-10] MEDS: Tiotropium Brom/Olodaterol MDI INH SCH (08:27)
[2021-05-10] MEDS: Nystatin SUSPENSION 100,000 UNITS/ML UDC PO SCH ×3 (09:29→14:10)
[2021-05-10 15:53] VITALS: BP 117/50
== END 2021-05-10 16:15 | disposition home or self-care (01) | DRG 563 ==
LOC: ED 23:00 → EDHOLD 05-08 13:48 → SUATTDRO 05-08 13:48 → MED 05-08 19:52
PROVIDERS: ADMIT Internal Medicine; ATTEND Internal Medicine

== ENCOUNTER 2021-05-14 11:35 | Observation (INO) ==
[2021-05-14] MEDS ORDERED: Albuterol HFA INHALER 8 gm MDI INH PRN (17:34)
[2021-05-14] MEDS ORDERED: Dextrose 50% Syringe 50 ml 25 GM/50 ML SYRINGE IV PUSH PRN (17:36)
[2021-05-14 18:48] LABS: Rapid COVID-19 Molecular Undetected (Undetected)
[2021-05-14] MEDS ORDERED: Enoxaparin 40 MG/0.4 ML SYR SUBCUT SCH (21:00)
[2021-05-15 05:46] LABS: ABS Eosinophils 0.1 10^3/ul (0-0.6); ABS Lymphocytes 1.4 10^3/ul (1.0-4.8); ABS Monocytes 0.6 10^3/ul (0-0.8); ABS Neutrophils 3.5 10^3/ul (1.5-7.7); Hematocrit 34 % (35-47); Lymphocyte % 25.1 %; Mean Corpuscular HGB Conc 33 g/dL (31-36); Mean Corpuscular Hemoglobin 29 pg (27-31); Mean Corpuscular Volume 88 fL (80-97); Mean Platelet Volume 7.1 fL (7.4-10.4); Platelet Count 449 10^3/uL (150-450); Red Blood Count 3.81 10^6 /uL (3.70-4.87); Red Cell Distribution Width 15 % (10-15); White Blood Count 5.7 10^3/uL (3.5-10.8)
[2021-05-15 06:06] LABS: Calcium 9.7 mg/dL (8.6-10.3); Potassium 3.3 mmol/L (3.5-5.0)
[2021-05-15] MEDS: Tiotropium Brom/Olodaterol MDI INH SCH (08:31)
[2021-05-15] MEDS ORDERED: Potassium Chlor 20 meq TAB.ER PO ONE (08:33)
[2021-05-15] MEDS: Enoxaparin 40 MG/0.4 ML SYR SUBCUT SCH (09:08)
[2021-05-15] MEDS: Potassium Chlor 10 meq TAB PO SCH (09:08)
[2021-05-16] MEDS: Tiotropium Brom/Olodaterol MDI INH SCH (08:26)
[2021-05-16] MEDS: Potassium Chlor 10 meq TAB PO SCH (08:54)
[2021-05-16] MEDS: Enoxaparin 40 MG/0.4 ML SYR SUBCUT SCH (08:55)
[2021-05-17 05:46] LABS: ABS Eosinophils 0.1 10^3/ul (0-0.6); ABS Lymphocytes 1.4 10^3/ul (1.0-4.8); ABS Monocytes 0.8 10^3/ul (0-0.8); ABS Neutrophils 5.1 10^3/ul (1.5-7.7); Eosinophil % 1.4 %; Hematocrit 34 % (35-47); Hemoglobin 11.2 g/dL (12.0-16.0); Lymphocyte % 18.6 %; Mean Corpuscular HGB Conc 33 g/dL (31-36); Mean Corpuscular Hemoglobin 29 pg (27-31); Mean Corpuscular Volume 89 fL (80-97); Platelet Count 456 10^3/uL (150-450); Red Blood Count 3.87 10^6 /uL (3.70-4.87); Red Cell Distribution Width 16 % (10-15); White Blood Count 7.4 10^3/uL (3.5-10.8)
[2021-05-17 06:01] LABS: Calcium 9.6 mg/dL (8.6-10.3); Potassium 3.4 mmol/L (3.5-5.0)
[2021-05-17] MEDS: Tiotropium Brom/Olodaterol MDI INH SCH (08:03)
[2021-05-17] MEDS ORDERED: Potassium Chlor 20 meq TAB.ER PO ONE (08:31)
[2021-05-17] MEDS: Potassium Chlor 10 meq TAB PO SCH (08:38)
[2021-05-17] MEDS: Enoxaparin 40 MG/0.4 ML SYR SUBCUT SCH (08:39)
[2021-05-17 15:14] LABS: Calcium 9.4 mg/dL (8.6-10.3); Potassium 4.3 mmol/L (3.5-5.0)
[2021-05-18] MEDS: Tiotropium Brom/Olodaterol MDI INH SCH ×2 (06:55→08:06)
[2021-05-18] MEDS: Potassium Chlor 10 meq TAB PO SCH (09:11)
[2021-05-18] MEDS: Enoxaparin 40 MG/0.4 ML SYR SUBCUT SCH (09:13)
[2021-05-18 10:26] LABS: ABS Eosinophils 0.1 10^3/ul (0-0.6); ABS Lymphocytes 1.5 10^3/ul (1.0-4.8); ABS Monocytes 0.6 10^3/ul (0-0.8); ABS Neutrophils 4.9 10^3/ul (1.5-7.7); Eosinophil % 1.2 %; Hematocrit 36 % (35-47); Hemoglobin 11.9 g/dL (12.0-16.0); Lymphocyte % 20.6 %; Mean Corpuscular HGB Conc 33 g/dL (31-36); Mean Corpuscular Hemoglobin 29 pg (27-31); Mean Corpuscular Volume 88 fL (80-97); Platelet Count 478 10^3/uL (150-450); Red Blood Count 4.12 10^6 /uL (3.70-4.87); Red Cell Distribution Width 16 % (10-15); White Blood Count 7.2 10^3/uL (3.5-10.8)
[2021-05-18 10:42] LABS: Calcium 10.2 mg/dL (8.6-10.3); Potassium 3.9 mmol/L (3.5-5.0)
[2021-05-18] MEDS ORDERED: Regadenoson 0.4 MG/5 ML SYRINGE ONE (14:53)
[2021-05-19 05:46] LABS: ABS Eosinophils 0.1 10^3/ul (0-0.6); ABS Lymphocytes 1.6 10^3/ul (1.0-4.8); ABS Monocytes 0.7 10^3/ul (0-0.8); ABS Neutrophils 4.1 10^3/ul (1.5-7.7); Eosinophil % 1.2 %; Hematocrit 35 % (35-47); Hemoglobin 11.5 g/dL (12.0-16.0); Lymphocyte % 24.5 %; Mean Corpuscular HGB Conc 33 g/dL (31-36); Mean Corpuscular Hemoglobin 29 pg (27-31); Mean Corpuscular Volume 88 fL (80-97); Mean Platelet Volume 6.9 fL (7.4-10.4); Platelet Count 447 10^3/uL (150-450); Red Blood Count 4.03 10^6 /uL (3.70-4.87); Red Cell Distribution Width 16 % (10-15); White Blood Count 6.5 10^3/uL (3.5-10.8)
[2021-05-19 06:03] LABS: Potassium 3.9 mmol/L (3.5-5.0)
[2021-05-19] MEDS: Tiotropium Brom/Olodaterol MDI INH SCH (07:38)
[2021-05-19] MEDS: Enoxaparin 40 MG/0.4 ML SYR SUBCUT SCH (09:26)
[2021-05-19] MEDS: Potassium Chlor 10 meq TAB PO SCH (09:29)
[2021-05-19 09:53] LABS: HDL Cholesterol 40.4 mg/dL
[2021-05-19] MEDS ORDERED: Aspirin EC 81 mg TAB.EC (enteric coated) PO SCH (11:00)
[2021-05-19 11:05] VITALS: BP 98/52
[2021-05-19 11:37] LABS: Rapid COVID-19 Molecular Undetected (Undetected)
== END 2021-05-19 14:00 ==
LOC: ED 11:35 → SSU 11:35
PROVIDERS: ADMIT Internal Medicine; ATTEND Internal Medicine

== ENCOUNTER 2022-08-25 04:47 | Inpatient (IN) ==
[2022-08-25] MEDS ORDERED: Acetaminophen IV 1 GM/100ML 1,000 MG/100 ML BAG IV ONE (05:11)
[2022-08-25] MEDS: Lactated Ringers SEPSIS* BAG 1,570 ML IV ONE ×2 (05:30→06:00)
[2022-08-25 05:33] LABS: ABS Basophils 0.1 10^3/ul (0-0.2); ABS Lymphocytes 0.9 10^3/ul (1.0-4.8); ABS Monocytes 0.9 10^3/ul (0-0.8); ABS Neutrophils 7.8 10^3/ul (1.5-7.7); Eosinophil % 0.3 %; Hematocrit 33 % (35-47); Hemoglobin 10.8 g/dL (12.0-16.0); Lymphocyte % 8.9 %; Mean Corpuscular HGB Conc 32 g/dL (31-36); Mean Corpuscular Hemoglobin 29 pg (27-31); Mean Corpuscular Volume 89 fL (80-97); Mean Platelet Volume 7.1 fL (7.4-10.4); Platelet Count 358 10^3/uL (150-450); Red Blood Count 3.77 10^6 /uL (3.70-4.87); Red Cell Distribution Width 16 % (10-15); White Blood Count 9.6 10^3/uL (3.5-10.8)
[2022-08-25 06:07] LABS: Albumin 3.5 g/dL (3.2-5.2); Albumin/Globulin Ratio 1.3 (1-3); C Reactive Protein 352.92 mg/L (<8.01); Calcium 9.4 mg/dL (8.6-10.3); Creatinine, Serum 0.68 mg/dL (0.51-0.95); Globulin 2.8 g/dL (2-4); Potassium 4.3 mmol/L (3.5-5.0); Total Bilirubin 0.7 mg/dL (0.2-1.0); Total Protein 6.3 g/dL (6.4-8.9); eGFR CKD-EPI 87.4 (>60)
[2022-08-25 06:32] LABS: Activated Partial Thrombo Time 35.3 seconds (26.0-38.0); INR 1.25 (0.88-1.18)
[2022-08-25] MEDS ORDERED: Lorazepam PYXIS KEY PRN ×2 (06:56→18:45)
[2022-08-25 07:06] LABS: Urine Appearance Clear; Urine Bilirubin Negative (Negative); Urine Blood Negative (Negative); Urine Color Yellow; Urine Glucose Negative (Negative); Urine Ketones 1+ (Negative); Urine Nitrite Negative (Negative); Urine Protein 1+(30 mg/dL) (Negative); Urine Urobilinogen Negative (Negative)
[2022-08-25 07:07] LABS: High Sensitivity Troponin 1 Hr 9 pg/mL (<15)
[2022-08-25] MEDS: LORazepam 2 mg VIAL 1 ml IV PUSH ONE ×2 (07:07→09:43)
[2022-08-25 07:10] LABS: Urine Bacteria Absent (Absent); Urine Red Blood Cell Absent (Absent); Urine White Blood Cell Absent (Absent)
[2022-08-25] MEDS ORDERED: Iodixanol (CONTRAST) 320 MG/ML 100 ML SDV IV ONE ×2 (09:22→15:12)
[2022-08-25] MEDS ORDERED: Albuterol HFA INHALER 8 gm MDI INH PRN (12:06)
[2022-08-25] MEDS ORDERED: Enoxaparin 40 MG/0.4 ML SYR SUBCUT SCH (16:00)
[2022-08-25] MEDS ORDERED: LORazepam 2 mg VIAL 1 ml IV PUSH ONE (18:45)
[2022-08-26] MEDS ORDERED: Vancomycin 1,000 MG in NS 0.9% 250 ml 250 ML IVPB SCH (00:31)
[2022-08-26] MEDS ORDERED: Vancomycin per Pharmacy 1 EA NOTE FOLLOW UP PRN (00:35)
[2022-08-26] MEDS ORDERED: Vancomycin 1,250 MG in NS 0.9% 250 ml 250 ML IVPB ONE (01:00)
[2022-08-26 06:53] LABS: Hematocrit 31 % (35-47); Hemoglobin 9.8 g/dL (12.0-16.0); Mean Corpuscular HGB Conc 32 g/dL (31-36); Mean Corpuscular Hemoglobin 28 pg (27-31); Mean Corpuscular Volume 89 fL (80-97); Platelet Count 317 10^3/uL (150-450); Red Blood Count 3.49 10^6 /uL (3.70-4.87); Red Cell Distribution Width 16 % (10-15); White Blood Count 6.6 10^3/uL (3.5-10.8)
[2022-08-26 07:19] LABS: Calcium 8.7 mg/dL (8.6-10.3); Creatinine, Serum 0.69 mg/dL (0.51-0.95); Magnesium 1.7 mg/dL (1.9-2.7); Potassium 3.9 mmol/L (3.5-5.0); eGFR CKD-EPI 87.1 (>60)
[2022-08-26] MEDS: Tiotropium Brom/Olodaterol MDI INH SCH (07:26)
[2022-08-26] MEDS: Fluticasone NASAL SPRAY 50MCG 16 gm SPRAY BTL INTRANASAL SCH (08:07)
[2022-08-26] MEDS: Nystatin TOP POWDER 15 GM BTL TOPICAL SCH ×3 (08:07→22:16)
[2022-08-26 09:10] LABS: ABS Lymphocytes 0.7 10^3/ul (1.0-4.8); ABS Monocytes 0.9 10^3/ul (0-0.8); Eosinophil % 0.3 %; Lymphocyte % 10.8 %; RBC Morphology Normal (Normal)
[2022-08-26 10:02] LABS: Erythrocyte Sed Rate 113 mm/Hr (0-29)
[2022-08-26] MEDS ORDERED: Zosyn per Pharmacy NOTE FOLLOW UP PRN (10:52)
[2022-08-26] MEDS: Vancomycin 1000 MG in NS 0.9% 250 ML IVPB SCH (13:46)
[2022-08-26] MEDS: cefTRIAXone 2 gm/50 mL D5W 2 GM/50 ML BAG IV SCH (18:19)
[2022-08-27] MEDS: Vancomycin 1000 MG in NS 0.9% 250 ML IVPB SCH ×2 (01:41→13:24)
[2022-08-27 07:05] LABS: Hematocrit 27 % (35-47); Hemoglobin 8.6 g/dL (12.0-16.0); Mean Corpuscular HGB Conc 32 g/dL (31-36); Mean Corpuscular Hemoglobin 28 pg (27-31); Mean Corpuscular Volume 89 fL (80-97); Mean Platelet Volume 7.2 fL (7.4-10.4); Platelet Count 296 10^3/uL (150-450); Red Blood Count 3.06 10^6 /uL (3.70-4.87); Red Cell Distribution Width 16 % (10-15)
[2022-08-27] MEDS ORDERED: Magnesium Sulfate 2 gm BAG 2 GM/50 ML BAG IVPB ONE (07:09)
[2022-08-27] MEDS: Tiotropium Brom/Olodaterol MDI INH SCH (07:44)
[2022-08-27 07:45] LABS: Calcium 8.7 mg/dL (8.6-10.3); Creatinine, Serum 0.64 mg/dL (0.51-0.95); Potassium 3.9 mmol/L (3.5-5.0); eGFR CKD-EPI 88.7 (>60)
[2022-08-27] MEDS ORDERED: ZOSYN 3.375 GM Q8H per EXTENDED INFUSION IV SCH (08:00)
[2022-08-27 08:59] LABS: ABS Lymphocytes 1.1 10^3/ul (1.0-4.8); ABS Monocytes 0.8 10^3/ul (0-0.8); ABS Neutrophils 4.1 10^3/ul (1.5-7.7); Eosinophil % 0.6 %; Lymphocyte % 17.7 %; RBC Morphology Normal (Normal)
[2022-08-27] MEDS: Fluticasone NASAL SPRAY 50MCG 16 gm SPRAY BTL INTRANASAL SCH (09:48)
[2022-08-27] MEDS: Enoxaparin 40 MG/0.4 ML SYR SUBCUT SCH (09:48)
[2022-08-27] MEDS: Nystatin TOP POWDER 15 GM BTL TOPICAL SCH ×3 (09:49→21:22)
[2022-08-27] MEDS ORDERED: Vancomycin Trough Check NOTE FOLLOW UP ONE (12:30)
[2022-08-27 12:45] LABS: Hematocrit 29 % (35-47); Hemoglobin 9.1 g/dL (12.0-16.0)
[2022-08-27 13:36] LABS: Creatinine, Serum 0.66 mg/dL (0.51-0.95); Vancomycin Trough 12.2 mcg/mL; eGFR CKD-EPI 88.1 (>60)
[2022-08-27] MEDS: cefTRIAXone 2 gm/50 mL D5W 2 GM/50 ML BAG IV SCH (17:46)
[2022-08-27] MEDS: Polyethylene Glycol 3350 17 GM PACKET PO SCH (21:15)
[2022-08-27] MEDS ORDERED: Vancomycin 1,250 MG in NS 0.9% 250 ml 250 ML IVPB SCH (23:00)
[2022-08-28 06:48] LABS: ABS Lymphocytes 1.1 10^3/ul (1.0-4.8); ABS Monocytes 0.7 10^3/ul (0-0.8); ABS Neutrophils 4.8 10^3/ul (1.5-7.7); Eosinophil % 0.6 %; Hematocrit 27 % (35-47); Hemoglobin 8.7 g/dL (12.0-16.0); Lymphocyte % 16.4 %; Mean Corpuscular HGB Conc 32 g/dL (31-36); Mean Corpuscular Hemoglobin 28 pg (27-31); Mean Corpuscular Volume 88 fL (80-97); Mean Platelet Volume 7.4 fL (7.4-10.4); Platelet Count 338 10^3/uL (150-450); Red Blood Count 3.07 10^6 /uL (3.70-4.87); Red Cell Distribution Width 17 % (10-15); White Blood Count 6.7 10^3/uL (3.5-10.8)
[2022-08-28 07:03] LABS: INR 1.2 (0.88-1.18)
[2022-08-28 07:21] LABS: Calcium 8.9 mg/dL (8.6-10.3); Creatinine, Serum 0.58 mg/dL (0.51-0.95); Potassium 4.5 mmol/L (3.5-5.0); eGFR CKD-EPI 90.9 (>60)
[2022-08-28] MEDS: Tiotropium Brom/Olodaterol MDI INH SCH (07:44)
[2022-08-28 08:38] LABS: C Reactive Protein 137.46 mg/L (<8.01)
[2022-08-28] MEDS: Fluticasone NASAL SPRAY 50MCG 16 gm SPRAY BTL INTRANASAL SCH (09:54)
[2022-08-28] MEDS: Enoxaparin 40 MG/0.4 ML SYR SUBCUT SCH ×2 (09:55→10:27)
[2022-08-28] MEDS: Nystatin TOP POWDER 15 GM BTL TOPICAL SCH ×3 (09:55→21:25)
[2022-08-28] MEDS: Polyethylene Glycol 3350 17 GM PACKET PO SCH ×2 (10:27→11:38)
[2022-08-28] MEDS: Ampicillin ADVAN 2 GM in NS 0.9% 100 ml BAG 100 ML IVPB SCH ×2 (11:39→13:39)
[2022-08-28 14:42] LABS: Magnesium 1.8 mg/dL (1.9-2.7)
[2022-08-28] MEDS ORDERED: Magnesium Sulfate 2 gm BAG 2 GM/50 ML BAG IVPB ONE (14:48)
[2022-08-28] MEDS: cefTRIAXone 2 gm/50 mL D5W 2 GM/50 ML BAG IV SCH (16:08)
[2022-08-29] MEDS: Tiotropium Brom/Olodaterol MDI INH SCH (07:44)
[2022-08-29] MEDS: Fluticasone NASAL SPRAY 50MCG 16 gm SPRAY BTL INTRANASAL SCH (09:45)
[2022-08-29] MEDS: Polyethylene Glycol 3350 17 GM PACKET PO SCH (09:50)
[2022-08-29] MEDS: Enoxaparin 40 MG/0.4 ML SYR SUBCUT SCH (09:51)
[2022-08-29] MEDS: Nystatin TOP POWDER 15 GM BTL TOPICAL SCH ×3 (09:51→21:34)
[2022-08-29] MEDS ORDERED: Vancomycin Trough Check NOTE FOLLOW UP ONE (10:30)
[2022-08-29 10:40] LABS: Hematocrit 30 % (35-47); Hemoglobin 9.4 g/dL (12.0-16.0); Mean Corpuscular HGB Conc 32 g/dL (31-36); Mean Corpuscular Hemoglobin 28 pg (27-31); Mean Corpuscular Volume 88 fL (80-97); Mean Platelet Volume 7.6 fL (7.4-10.4); Platelet Count 383 10^3/uL (150-450); Red Blood Count 3.34 10^6 /uL (3.70-4.87); Red Cell Distribution Width 16 % (10-15); White Blood Count 6.8 10^3/uL (3.5-10.8)
[2022-08-29 11:03] LABS: Calcium 9.3 mg/dL (8.6-10.3); Creatinine, Serum 0.56 mg/dL (0.51-0.95); Magnesium 1.6 mg/dL (1.9-2.7); Potassium 4.1 mmol/L (3.5-5.0); eGFR CKD-EPI 91.6 (>60)
[2022-08-29] MEDS ORDERED: Magnesium Sulfate 2 gm BAG 2 GM/50 ML BAG IVPB ONE (11:13)
[2022-08-29] MEDS: cefTRIAXone 2 gm/50 mL D5W 2 GM/50 ML BAG IV SCH (15:27)
[2022-08-29] MEDS ORDERED: Iodixanol (CONTRAST) 320 MG/ML 100 ML SDV IV ONE (19:58)
[2022-08-30 06:39] LABS: Hematocrit 27 % (35-47); Hemoglobin 8.8 g/dL (12.0-16.0); Mean Corpuscular HGB Conc 32 g/dL (31-36); Mean Corpuscular Hemoglobin 28 pg (27-31); Mean Corpuscular Volume 88 fL (80-97); Platelet Count 383 10^3/uL (150-450); Red Blood Count 3.13 10^6 /uL (3.70-4.87); Red Cell Distribution Width 16 % (10-15); White Blood Count 7.8 10^3/uL (3.5-10.8)
[2022-08-30 07:29] LABS: Calcium 9.2 mg/dL (8.6-10.3); Creatinine, Serum 0.61 mg/dL (0.51-0.95); Magnesium 1.7 mg/dL (1.9-2.7); Potassium 4.4 mmol/L (3.5-5.0); eGFR CKD-EPI 89.8 (>60)
[2022-08-30] MEDS: Tiotropium Brom/Olodaterol MDI INH SCH (07:31)
[2022-08-30] MEDS ORDERED: Magnesium Sulfate 2 gm BAG 2 GM/50 ML BAG IVPB ONE (07:31)
[2022-08-30] MEDS: Fluticasone NASAL SPRAY 50MCG 16 gm SPRAY BTL INTRANASAL SCH (08:27)
[2022-08-30] MEDS: Polyethylene Glycol 3350 17 GM PACKET PO SCH (08:28)
[2022-08-30] MEDS: Enoxaparin 40 MG/0.4 ML SYR SUBCUT SCH (11:51)
[2022-08-30] MEDS: cefTRIAXone 2 gm/50 mL D5W 2 GM/50 ML BAG IV SCH (15:19)
[2022-08-30] MEDS: Nystatin TOP POWDER 15 GM BTL TOPICAL SCH ×3 (16:17→20:47)
[2022-08-31 06:46] LABS: ABS Basophils 0.1 10^3/ul (0-0.2); ABS Eosinophils 0.1 10^3/ul (0-0.6); ABS Lymphocytes 1.5 10^3/ul (1.0-4.8); ABS Monocytes 0.8 10^3/ul (0-0.8); ABS Neutrophils 5.9 10^3/ul (1.5-7.7); Eosinophil % 1.1 %; Hematocrit 28 % (35-47); Hemoglobin 9.2 g/dL (12.0-16.0); Lymphocyte % 18.2 %; Mean Corpuscular HGB Conc 33 g/dL (31-36); Mean Corpuscular Hemoglobin 29 pg (27-31); Mean Corpuscular Volume 88 fL (80-97); Mean Platelet Volume 8.1 fL (7.4-10.4); Platelet Count 428 10^3/uL (150-450); Red Blood Count 3.15 10^6 /uL (3.70-4.87); Red Cell Distribution Width 16 % (10-15); White Blood Count 8.4 10^3/uL (3.5-10.8)
[2022-08-31] MEDS: Tiotropium Brom/Olodaterol MDI INH SCH (07:31)
[2022-08-31] MEDS ORDERED: HYDROcodone/ACETAMIN 5/325 mg TAB PO PRN (09:44)
[2022-08-31] MEDS: Polyethylene Glycol 3350 17 GM PACKET PO SCH (09:45)
[2022-08-31] MEDS: Enoxaparin 40 MG/0.4 ML SYR SUBCUT SCH (09:48)
[2022-08-31] MEDS: Magnesium Sulfate 2 gm BAG 2 GM/50 ML BAG IVPB ONE ×2 (09:49→10:55)
[2022-08-31] MEDS: Nystatin TOP POWDER 15 GM BTL TOPICAL SCH ×2 (09:51→15:38)
[2022-08-31] MEDS: Fluticasone NASAL SPRAY 50MCG 16 gm SPRAY BTL INTRANASAL SCH (09:54)
[2022-08-31] MEDS: cefTRIAXone 2 gm/50 mL D5W 2 GM/50 ML BAG IV SCH (15:22)
[2022-08-31] MEDS ORDERED: Lorazepam PYXIS KEY PRN (15:44)
[2022-08-31] MEDS ORDERED: LORazepam 2 mg VIAL 1 ml IV PUSH ONE (15:44)
[2022-08-31 18:46] VITALS: BP 117/70
== END 2022-08-31 20:20 | disposition home or self-care (01) | DRG 871 ==
LOC: ED 04:47 → EDHOLD 04:47 → SUATTDRO 11:53 → MED 21:57 → SUATTDRO 08-27 15:43 → MED 08-28 19:26
PROVIDERS: ADMIT Hospitalist; ATTEND Internal Medicine

== ENCOUNTER 2022-09-14 00:25 | Inpatient (IN) ==
[2022-09-14] MEDS ORDERED: Lactated Ringers SEPSIS* BAG 1,570 ML IV ONE (01:10)
[2022-09-14 01:53] LABS: ABS Basophils 0.1 10^3/ul (0-0.2); ABS Eosinophils 0.1 10^3/ul (0-0.6); ABS Lymphocytes 0.4 10^3/ul (1.0-4.8); ABS Monocytes 0.6 10^3/ul (0-0.8); Eosinophil % 0.9 %; Hematocrit 32 % (35-47); Hemoglobin 10.4 g/dL (12.0-16.0); Lymphocyte % 4.7 %; Mean Corpuscular HGB Conc 33 g/dL (31-36); Mean Corpuscular Hemoglobin 29 pg (27-31); Mean Corpuscular Volume 88 fL (80-97); Mean Platelet Volume 7.2 fL (7.4-10.4); Platelet Count 295 10^3/uL (150-450); Red Blood Count 3.62 10^6 /uL (3.70-4.87); Red Cell Distribution Width 16 % (10-15); White Blood Count 8.1 10^3/uL (3.5-10.8)
[2022-09-14 02:01] LABS: INR 1.22 (0.88-1.18)
[2022-09-14 02:07] LABS: Urine Appearance Clear; Urine Bilirubin Negative (Negative); Urine Blood Negative (Negative); Urine Color Yellow; Urine Glucose Negative (Negative); Urine Ketones Trace (Negative); Urine Nitrite Negative (Negative); Urine Protein 1+(30 mg/dL) (Negative); Urine Specific Gravity 1.018 (1.002-1.030); Urine Urobilinogen Negative (Negative)
[2022-09-14 02:11] LABS: Urine Bacteria Absent (Absent); Urine Red Blood Cell Trace(0-2/hpf) (Absent); Urine Squamous Epithelial Cell Present (Absent); Urine White Blood Cell Trace(0-5/hpf) (Absent)
[2022-09-14 02:38] LABS: Albumin 3.6 g/dL (3.2-5.2); Albumin/Globulin Ratio 1.5 (1-3); C Reactive Protein 113.43 mg/L (<8.01); Calcium 9.3 mg/dL (8.6-10.3); Creatinine, Serum 0.67 mg/dL (0.51-0.95); Globulin 2.4 g/dL (2-4); Potassium 3.9 mmol/L (3.5-5.0); Total Bilirubin 0.4 mg/dL (0.2-1.0); eGFR CKD-EPI 87.8 (>60)
[2022-09-14 03:04] LABS: High Sensitivity Troponin 1 Hr 12 pg/mL (<15)
[2022-09-14] MEDS ORDERED: Ondansetron 4 mg VIAL 2 MG/ML 2 ml VIAL IV PRN (05:05)
[2022-09-14] MEDS ORDERED: Senna TAB 8.6 mg TAB PO PRN (05:05)
[2022-09-14] MEDS ORDERED: Dextrose 50% Syringe 50 ml 25 GM/50 ML SYRINGE IV PUSH PRN (05:08)
[2022-09-14] MEDS ORDERED: Albuterol HFA INHALER 8 gm MDI INH PRN (05:09)
[2022-09-14] MEDS ORDERED: Vancomycin 1,000 MG in NS 0.9% 250 ml 250 ML IVPB ONE (05:35)
[2022-09-14] MEDS ORDERED: Vancomycin 1500 MG IV - x ONCE IVPB ONE (06:00)
[2022-09-14] MEDS ORDERED: Vancomycin per Pharmacy 1 EA NOTE FOLLOW UP SCH (06:00)
[2022-09-14] MEDS ORDERED: cefTAZidime (*) 2 GM in NS 0.9% 100 ml BAG 100 ML IVPB SCH ×2 (06:00→20:00)
[2022-09-14] MEDS ORDERED: Lactated Ringers 1000 ml BAG 500 ML IV ONE (06:02)
[2022-09-14] MEDS: Enoxaparin 40 MG/0.4 ML SYR SUBCUT SCH (06:14)
[2022-09-14] MEDS: Vitamin THERAPEUTIC TAB PO SCH (08:56)
[2022-09-14] MEDS: Fluticasone NASAL SPRAY 50MCG 16 gm SPRAY BTL INTRANASAL SCH (08:58)
[2022-09-14] MEDS: Nystatin TOP POWDER 15 GM BTL TOPICAL SCH ×3 (08:58→21:45)
[2022-09-14] MEDS: Lidocaine PATCH 5% PATCH TRANSDERM SCH (08:58)
[2022-09-14] MEDS: Tiotropium Brom/Olodaterol MDI (ACUTE) INH SCH (08:59)
[2022-09-14 13:00] LABS: ABS Lymphocytes 0.4 10^3/ul (1.0-4.8); ABS Monocytes 0.6 10^3/ul (0-0.8); ABS Neutrophils 6.4 10^3/ul (1.5-7.7); Eosinophil % 0.6 %; Hematocrit 29 % (35-47); Hemoglobin 9.2 g/dL (12.0-16.0); Lymphocyte % 5.8 %; Mean Corpuscular HGB Conc 32 g/dL (31-36); Mean Corpuscular Hemoglobin 28 pg (27-31); Mean Corpuscular Volume 88 fL (80-97); Mean Platelet Volume 7.2 fL (7.4-10.4); Platelet Count 247 10^3/uL (150-450); Red Blood Count 3.25 10^6 /uL (3.70-4.87); Red Cell Distribution Width 17 % (10-15); White Blood Count 7.5 10^3/uL (3.5-10.8)
[2022-09-14 13:40] LABS: C Reactive Protein 149.85 mg/L (<8.01); Calcium 8.7 mg/dL (8.6-10.3); Creatinine, Serum 0.64 mg/dL (0.51-0.95); Potassium 3.8 mmol/L (3.5-5.0); eGFR CKD-EPI 88.7 (>60)
[2022-09-14] MEDS: Vancomycin 750 MG in NS 0.9% 250 ML IVPB SCH (18:23)
[2022-09-15] MEDS: Vancomycin 750 MG in NS 0.9% 250 ML IVPB SCH (03:50)
[2022-09-15 06:23] LABS: ABS Eosinophils 0.1 10^3/ul (0-0.6); ABS Lymphocytes 0.9 10^3/ul (1.0-4.8); ABS Monocytes 0.6 10^3/ul (0-0.8); Hematocrit 27 % (35-47); Hemoglobin 8.7 g/dL (12.0-16.0); Lymphocyte % 15.4 %; Mean Corpuscular HGB Conc 32 g/dL (31-36); Mean Corpuscular Hemoglobin 28 pg (27-31); Mean Corpuscular Volume 88 fL (80-97); Mean Platelet Volume 7.8 fL (7.4-10.4); Platelet Count 227 10^3/uL (150-450); Red Blood Count 3.08 10^6 /uL (3.70-4.87); Red Cell Distribution Width 17 % (10-15); White Blood Count 5.6 10^3/uL (3.5-10.8)
[2022-09-15 06:35] LABS: INR 1.22 (0.88-1.18)
[2022-09-15] MEDS: Enoxaparin 40 MG/0.4 ML SYR SUBCUT SCH (06:42)
[2022-09-15 06:45] LABS: Calcium 8.7 mg/dL (8.6-10.3); Creatinine, Serum 0.56 mg/dL (0.51-0.95); Magnesium 1.5 mg/dL (1.9-2.7); Potassium 3.6 mmol/L (3.5-5.0); eGFR CKD-EPI 91.6 (>60)
[2022-09-15] MEDS ORDERED: NS 0.9% 1000 ml BAG 1,000 ML IV ONE (07:00)
[2022-09-15] MEDS ORDERED: Magnesium Sulfate IV 3 GM in NS 0.9% 100 ml BAG 100 ML IVPB ONE (07:03)
[2022-09-15] MEDS: Tiotropium Brom/Olodaterol MDI (ACUTE) INH SCH (07:33)
[2022-09-15] MEDS ORDERED: Midazolam 5 mg/5 ml VIAL 1 mg/ml 5 ml VIAL (5 mg) ONE (08:08)
[2022-09-15] MEDS ORDERED: Naloxone 0.4 mg VIAL 0.4 mg/ml 1 ml VIAL ONE (08:09)
[2022-09-15] MEDS ORDERED: fentaNYL 100 mcg/2 ml 50 MCG/ML VIAL ONE (08:09)
[2022-09-15] MEDS ORDERED: Flumazenil 0.5 mg/5 ml 0.1 MG/ML 5 ml VIAL ONE (08:09)
[2022-09-15] MEDS ORDERED: Midazolam 10 mg/10 ml VIAL 1 mg/ml 10 ml VIAL (10 mg) IV SLOW PU ONE (09:14)
[2022-09-15] MEDS ORDERED: fentaNYL 100 mcg/2 ml 50 MCG/ML VIAL IV SLOW PU ONE (09:14)
[2022-09-15] MEDS: Vitamin THERAPEUTIC TAB PO SCH (12:51)
[2022-09-15] MEDS ORDERED: Iodixanol (CONTRAST) 320 MG/ML 100 ML SDV IV ONE (13:05)
[2022-09-15] MEDS: Nystatin TOP POWDER 15 GM BTL TOPICAL SCH ×3 (13:33→22:24)
[2022-09-15] MEDS: Fluticasone NASAL SPRAY 50MCG 16 gm SPRAY BTL INTRANASAL SCH (13:33)
[2022-09-15] MEDS: Ampicillin ADVAN 2 GM in NS 0.9% 100 ml BAG 100 ML IVPB SCH ×3 (13:34→23:57)
[2022-09-15] MEDS: Lidocaine PATCH 5% PATCH TRANSDERM SCH (14:55)
[2022-09-15] MEDS ORDERED: Vancomycin Trough Check NOTE FOLLOW UP ONE (15:30)
[2022-09-16] MEDS: Enoxaparin 40 MG/0.4 ML SYR SUBCUT SCH (05:29)
[2022-09-16 06:39] LABS: ABS Eosinophils 0.2 10^3/ul (0-0.6); ABS Lymphocytes 0.6 10^3/ul (1.0-4.8); ABS Monocytes 0.5 10^3/ul (0-0.8); ABS Neutrophils 5.5 10^3/ul (1.5-7.7); Eosinophil % 2.2 %; Hematocrit 31 % (35-47); Hemoglobin 9.8 g/dL (12.0-16.0); Lymphocyte % 8.7 %; Mean Corpuscular HGB Conc 32 g/dL (31-36); Mean Corpuscular Hemoglobin 29 pg (27-31); Mean Corpuscular Volume 90 fL (80-97); Mean Platelet Volume 7.8 fL (7.4-10.4); Platelet Count 217 10^3/uL (150-450); Red Blood Count 3.42 10^6 /uL (3.70-4.87); Red Cell Distribution Width 17 % (10-15); White Blood Count 6.8 10^3/uL (3.5-10.8)
[2022-09-16 07:07] LABS: Calcium 8.7 mg/dL (8.6-10.3); Creatinine, Serum 0.48 mg/dL (0.51-0.95); Magnesium 1.8 mg/dL (1.9-2.7); Potassium 3.7 mmol/L (3.5-5.0); eGFR CKD-EPI 95.1 (>60)
[2022-09-16] MEDS: Tiotropium Brom/Olodaterol MDI (ACUTE) INH SCH (07:17)
[2022-09-16] MEDS: Vitamin THERAPEUTIC TAB PO SCH (08:18)
[2022-09-16] MEDS: Ampicillin ADVAN 2 GM in NS 0.9% 100 ml BAG 100 ML IVPB SCH ×3 (08:55→17:48)
[2022-09-16] MEDS: Fluticasone NASAL SPRAY 50MCG 16 gm SPRAY BTL INTRANASAL SCH (09:43)
[2022-09-16] MEDS: Nystatin TOP POWDER 15 GM BTL TOPICAL SCH ×3 (09:43→19:49)
[2022-09-16] MEDS: Lidocaine PATCH 5% PATCH TRANSDERM SCH (09:43)
[2022-09-17] MEDS: Ampicillin ADVAN 2 GM in NS 0.9% 100 ml BAG 100 ML IVPB SCH ×5 (00:23→23:48)
[2022-09-17] MEDS: Tiotropium Brom/Olodaterol MDI (ACUTE) INH SCH (07:27)
[2022-09-17] MEDS: Enoxaparin 40 MG/0.4 ML SYR SUBCUT SCH (07:29)
[2022-09-17] MEDS: Vitamin THERAPEUTIC TAB PO SCH (08:41)
[2022-09-17] MEDS: Lidocaine PATCH 5% PATCH TRANSDERM SCH (08:42)
[2022-09-17] MEDS: Nystatin TOP POWDER 15 GM BTL TOPICAL SCH ×3 (08:43→19:07)
[2022-09-17] MEDS: Fluticasone NASAL SPRAY 50MCG 16 gm SPRAY BTL INTRANASAL SCH (08:43)
[2022-09-17] MEDS ORDERED: Magnesium Sulfate 2 gm BAG 2 GM/50 ML BAG IVPB ONE (13:35)
[2022-09-18] MEDS: Ampicillin ADVAN 2 GM in NS 0.9% 100 ml BAG 100 ML IVPB SCH ×3 (05:38→17:10)
[2022-09-18] MEDS: Enoxaparin 40 MG/0.4 ML SYR SUBCUT SCH (05:39)
[2022-09-18] MEDS: Tiotropium Brom/Olodaterol MDI (ACUTE) INH SCH (07:41)
[2022-09-18] MEDS: Vitamin THERAPEUTIC TAB PO SCH (09:41)
[2022-09-18] MEDS: Lidocaine PATCH 5% PATCH TRANSDERM SCH (09:41)
[2022-09-18] MEDS: Fluticasone NASAL SPRAY 50MCG 16 gm SPRAY BTL INTRANASAL SCH (09:42)
[2022-09-18] MEDS: Nystatin TOP POWDER 15 GM BTL TOPICAL SCH ×3 (09:42→19:23)
[2022-09-18 10:22] LABS: Creatinine, Serum 0.56 mg/dL (0.51-0.95); Magnesium 1.7 mg/dL (1.9-2.7); Potassium 3.4 mmol/L (3.5-5.0); eGFR CKD-EPI 91.6 (>60)
[2022-09-18 10:31] LABS: ABS Basophils 0.1 10^3/ul (0-0.2); ABS Eosinophils 0.2 10^3/ul (0-0.6); ABS Lymphocytes 0.9 10^3/ul (1.0-4.8); ABS Monocytes 0.5 10^3/ul (0-0.8); ABS Neutrophils 4.5 10^3/ul (1.5-7.7); Eosinophil % 3.4 %; Hematocrit 27 % (35-47); Hemoglobin 8.7 g/dL (12.0-16.0); Lymphocyte % 14.3 %; Mean Corpuscular HGB Conc 32 g/dL (31-36); Mean Corpuscular Hemoglobin 28 pg (27-31); Mean Corpuscular Volume 87 fL (80-97); Mean Platelet Volume 7.2 fL (7.4-10.4); Platelet Count 280 10^3/uL (150-450); Red Blood Count 3.13 10^6 /uL (3.70-4.87); Red Cell Distribution Width 17 % (10-15); White Blood Count 6.1 10^3/uL (3.5-10.8)
[2022-09-18] MEDS ORDERED: Magnesium Sulfate IV 3 GM in NS 0.9% 100 ml BAG 100 ML IVPB ONE (14:17)
[2022-09-19] MEDS: Ampicillin ADVAN 2 GM in NS 0.9% 100 ml BAG 100 ML IVPB SCH ×4 (00:23→18:09)
[2022-09-19 05:24] LABS: ABS Eosinophils 0.1 10^3/ul (0-0.6); ABS Lymphocytes 1.2 10^3/ul (1.0-4.8); ABS Monocytes 0.6 10^3/ul (0-0.8); ABS Neutrophils 3.3 10^3/ul (1.5-7.7); Eosinophil % 2.6 %; Hematocrit 27 % (35-47); Hemoglobin 8.9 g/dL (12.0-16.0); Lymphocyte % 22.6 %; Mean Corpuscular HGB Conc 33 g/dL (31-36); Mean Corpuscular Hemoglobin 29 pg (27-31); Mean Corpuscular Volume 88 fL (80-97); Mean Platelet Volume 7.3 fL (7.4-10.4); Platelet Count 327 10^3/uL (150-450); Red Blood Count 3.11 10^6 /uL (3.70-4.87); Red Cell Distribution Width 17 % (10-15); White Blood Count 5.2 10^3/uL (3.5-10.8)
[2022-09-19 06:26] LABS: Anion Gap 7 mmol/L (2-11); Blood Urea Nitrogen 9 mg/dL (6-24); CO2 Carbon Dioxide 30 mmol/L (22-32); Calcium 8.8 mg/dL (8.6-10.3); Chloride 105 mmol/L (101-111); Glucose 95 mg/dL (70-100); Potassium 3.6 mmol/L (3.5-5.0); Sodium 142 mmol/L (135-145); eGFR CKD-EPI 94.2 (>60)
[2022-09-19] MEDS: Tiotropium Brom/Olodaterol MDI (ACUTE) INH SCH (07:24)
[2022-09-19] MEDS: Vitamin THERAPEUTIC TAB PO SCH (09:27)
[2022-09-19] MEDS: Fluticasone NASAL SPRAY 50MCG 16 gm SPRAY BTL INTRANASAL SCH (09:29)
[2022-09-19] MEDS: Nystatin TOP POWDER 15 GM BTL TOPICAL SCH ×3 (09:30→20:43)
[2022-09-19] MEDS: Lidocaine PATCH 5% PATCH TRANSDERM SCH (12:11)
[2022-09-19] MEDS ORDERED: Enoxaparin 40 MG/0.4 ML SYR SUBCUT ONE (13:24)
[2022-09-19] MEDS ORDERED: Iodixanol (CONTRAST) 320 MG/ML 100 ML SDV IV ONE (13:42)
[2022-09-19 14:08] LABS: % Iron Saturation 7 % (15-55); .Transferrin 196 mg/dL (203-362); Iron < 20 ug/dL (50-212); Total Iron Binding Capacity 274 mcg/dL (250-450); Transferrin 196 mg/dL (203-362); Unsaturated Iron Binding 254 ug/dL
[2022-09-19 14:28] LABS: Ferritin 201.3 ng/mL (11-307)
[2022-09-20] MEDS: Ampicillin ADVAN 2 GM in NS 0.9% 100 ml BAG 100 ML IVPB SCH ×4 (00:05→17:53)
[2022-09-20 05:59] LABS: ABS Basophils 0.1 10^3/ul (0-0.2); ABS Eosinophils 0.1 10^3/ul (0-0.6); ABS Lymphocytes 1.7 10^3/ul (1.0-4.8); ABS Monocytes 0.7 10^3/ul (0-0.8); ABS Neutrophils 4.1 10^3/ul (1.5-7.7); Eosinophil % 2.2 %; Hematocrit 29 % (35-47); Hemoglobin 9.3 g/dL (12.0-16.0); Lymphocyte % 24.9 %; Mean Corpuscular HGB Conc 32 g/dL (31-36); Mean Corpuscular Hemoglobin 28 pg (27-31); Mean Corpuscular Volume 87 fL (80-97); Mean Platelet Volume 7.2 fL (7.4-10.4); Nucleated Red Blood Cells % 0.1; Platelet Count 394 10^3/uL (150-450); Red Blood Count 3.38 10^6 /uL (3.70-4.87); Red Cell Distribution Width 17 % (10-15); White Blood Count 6.7 10^3/uL (3.5-10.8)
[2022-09-20 06:05] LABS: INR 1.25 (0.88-1.18)
[2022-09-20 06:46] LABS: Calcium 9.2 mg/dL (8.6-10.3); Creatinine, Serum 0.48 mg/dL (0.51-0.95); Magnesium 1.7 mg/dL (1.9-2.7); Potassium 3.5 mmol/L (3.5-5.0); eGFR CKD-EPI 95.1 (>60)
[2022-09-20] MEDS: Tiotropium Brom/Olodaterol MDI (ACUTE) INH SCH (07:59)
[2022-09-20] MEDS: Fluticasone NASAL SPRAY 50MCG 16 gm SPRAY BTL INTRANASAL SCH (09:08)
[2022-09-20] MEDS: Vitamin THERAPEUTIC TAB PO SCH (09:08)
[2022-09-20] MEDS: Lidocaine PATCH 5% PATCH TRANSDERM SCH (09:13)
[2022-09-20] MEDS: Nystatin TOP POWDER 15 GM BTL TOPICAL SCH ×3 (09:13→21:41)
[2022-09-20] MEDS: Enoxaparin 40 MG/0.4 ML SYR SUBCUT SCH (12:02)
[2022-09-20] MEDS ORDERED: Magnesium Sulfate IV 3 GM in NS 0.9% 100 ml BAG 100 ML IVPB ONE (18:01)
[2022-09-21] MEDS: Ampicillin ADVAN 2 GM in NS 0.9% 100 ml BAG 100 ML IVPB SCH ×4 (00:06→17:27)
[2022-09-21] MEDS: Fluticasone NASAL SPRAY 50MCG 16 gm SPRAY BTL INTRANASAL SCH (08:56)
[2022-09-21] MEDS: Tiotropium Brom/Olodaterol MDI (ACUTE) INH SCH (08:57)
[2022-09-21] MEDS: Lidocaine PATCH 5% PATCH TRANSDERM SCH (08:58)
[2022-09-21] MEDS: Nystatin TOP POWDER 15 GM BTL TOPICAL SCH ×2 (08:58→12:59)
[2022-09-21] MEDS: Vitamin THERAPEUTIC TAB PO SCH (09:00)
[2022-09-21] MEDS: Enoxaparin 40 MG/0.4 ML SYR SUBCUT SCH (12:30)
[2022-09-21 14:17] VITALS: BP 112/62
== END 2022-09-21 18:45 | disposition home or self-care (01) | DRG 551 ==
LOC: EDHOLD 00:25 → ED 00:25 → SUATTDRO 05:05 → EDHOLD 16:04 → MED 17:06 → SUATTDRO 09-15 13:09
PROVIDERS: ADMIT Student in an Organized Health Care Education/Training Program; ATTEND Hospitalist

== ENCOUNTER 2023-08-02 12:29 | Observation (INO) ==
[2023-08-02 16:00] LABS: ABS Basophils 0.1 10^3/uL (0.0-0.1); ABS Lymphocytes 0.7 10^3/uL (1.0-4.8); ABS Monocytes 0.3 10^3/uL (0.0-0.9); ABS Neutrophils 7.5 10^3/uL (1.5-7.6); Eosinophil % 0.4 %; Hemoglobin 11.4 g/dL (11.5-14.3); Lymphocyte % 7.7 %; Mean Corpuscular Hemoglobin 28.9 pg (27-33); Mean Corpuscular Hgb Conc 32.6 g/dL (31-36); Mean Corpuscular Volume 88.6 fL (80-97); Mean Platelet Volume 7.3 fL (7.5-11.2); Platelet Count 361 10^3/uL (150-450); Red Blood Count 3.95 10^6/uL (3.63-4.92); Red Cell Distribution Width 15.4 % (12-17); White Blood Count 8.5 10^3/uL (3.8-11.8)
[2023-08-02 16:27] LABS: Albumin 3.8 g/dL (3.2-5.2); Albumin/Globulin Ratio 1.4 (1-3); CRP High Sensitivity 21.47 mg/L (<2.00); Calcium 10.2 mg/dL (8.6-10.3); Creatinine, Serum 0.64 mg/dL (0.51-0.95); Globulin 2.8 g/dL (2-4); Potassium 4.4 mmol/L (3.5-5.0); Total Bilirubin 0.3 mg/dL (0.2-1.0); Total Protein 6.6 g/dL (6.4-8.9); eGFR CKD-EPI 88.7 (>60)
[2023-08-02] MEDS ORDERED: Albuterol HFA INHALER 8 gm MDI INH PRN (18:54)
[2023-08-02] MEDS ORDERED: Dextrose 50% Syringe 50 ml 25 GM/50 ML SYRINGE IV PUSH PRN (18:57)
[2023-08-02] MEDS ORDERED: Vancomycin per Pharmacy 1 EA NOTE FOLLOW UP PRN (19:50)
[2023-08-02] MEDS ORDERED: HYDROcodone/ACETAMIN 5/325 mg TAB PO PRN (19:56)
[2023-08-02] MEDS: Acetaminophen IV 1 GM/100ML 1,000 MG/100 ML BAG IV ONE (20:31)
[2023-08-02] MEDS: Enoxaparin 40 MG/0.4 ML SYR SUBCUT SCH (20:31)
[2023-08-02] MEDS: cefTRIAXone 2 gm/50 mL D5W 2 GM/50 ML BAG IV SCH (20:48)
[2023-08-02] MEDS: Vancomycin 1,250 MG in NS 0.9% 250 ml 250 ML IVPB ONE (22:04)
[2023-08-03 04:58] LABS: ABS Eosinophils 0.1 10^3/uL (0.0-0.5); ABS Lymphocytes 1.5 10^3/uL (1.0-4.8); ABS Monocytes 0.5 10^3/uL (0.0-0.9); ABS Neutrophils 6.8 10^3/uL (1.5-7.6); ABS Nucleated RBC 0.01 10^3/ul; Eosinophil % 0.9 %; Hematocrit 36.1 % (35-45); Hemoglobin 11.9 g/dL (11.5-14.3); Lymphocyte % 17.2 %; Mean Corpuscular Hemoglobin 29.2 pg (27-33); Mean Corpuscular Volume 88.5 fL (80-97); Mean Platelet Volume 7.6 fL (7.5-11.2); Nucleated Red Blood Cells % 0.1 %/100WBC (0.0-0.8); Platelet Count 386 10^3/uL (150-450); Red Blood Count 4.08 10^6/uL (3.63-4.92); Red Cell Distribution Width 15.9 % (12-17); White Blood Count 8.9 10^3/uL (3.8-11.8)
[2023-08-03 05:32] LABS: Phosphorus 3.3 mg/dL (2.5-5.0); Potassium 4.1 mmol/L (3.5-5.0)
[2023-08-03 05:33] LABS: Calcium 9.7 mg/dL (8.6-10.3); Creatinine, Serum 0.66 mg/dL (0.51-0.95); Magnesium 1.8 mg/dL (1.9-2.7); eGFR CKD-EPI 88.1 (>60)
[2023-08-03] MEDS: Vancomycin 1000 MG in NS 0.9% 250 ML IVPB SCH ×2 (10:36→22:31)
[2023-08-03] MEDS: HYDROcodone/ACETAMIN 5/325 mg TAB PO PRN (11:29)
[2023-08-03] MEDS: Tiotropium Brom/Olodaterol MDI (ACUTE) INH SCH (11:30)
[2023-08-03] MEDS: Acetaminophen IV 1 GM/100ML 1,000 MG/100 ML BAG IV PRN (20:22)
[2023-08-03] MEDS: cefTRIAXone 2 gm/50 mL D5W 2 GM/50 ML BAG IV SCH (21:43)
[2023-08-04 06:07] LABS: ABS Eosinophils 0.1 10^3/uL (0.0-0.5); ABS Lymphocytes 0.5 10^3/uL (1.0-4.8); ABS Monocytes 0.3 10^3/uL (0.0-0.9); ABS Neutrophils 6.7 10^3/uL (1.5-7.6); Eosinophil % 0.8 %; Hematocrit 38.2 % (35-45); Hemoglobin 12.5 g/dL (11.5-14.3); Lymphocyte % 6.4 %; Mean Corpuscular Hgb Conc 32.8 g/dL (31-36); Mean Corpuscular Volume 88.4 fL (80-97); Mean Platelet Volume 7.3 fL (7.5-11.2); Nucleated Red Blood Cells % 0.1 %/100WBC (0.0-0.8); Platelet Count 343 10^3/uL (150-450); Red Blood Count 4.33 10^6/uL (3.63-4.92); Red Cell Distribution Width 16.1 % (12-17); White Blood Count 7.5 10^3/uL (3.8-11.8)
[2023-08-04 06:23] LABS: Calcium 9.6 mg/dL (8.6-10.3); Creatinine, Serum 0.75 mg/dL (0.51-0.95); Potassium 3.7 mmol/L (3.5-5.0); eGFR CKD-EPI 79.9 (>60)
[2023-08-04] MEDS: Vancomycin Trough Check NOTE FOLLOW UP ONE (12:43)
[2023-08-04] MEDS: Vancomycin 1,250 MG in NS 0.9% 250 ml 250 ML IVPB SCH (13:44)
[2023-08-04 18:30] VITALS: BP 106/70
[2023-08-07] MEDS ORDERED: Vancomycin Trough Check NOTE FOLLOW UP ONE (10:30)
== END 2023-08-04 19:20 | disposition home or self-care (01) ==
LOC: ED 12:29 → EDHOLD 12:29 → SUATTDRO 17:00 → MED 08-03 07:00
PROVIDERS: ADMIT Hospitalist; ATTEND Internal Medicine

== ENCOUNTER 2023-08-17 01:35 | Observation (INO) ==
[2023-08-17] MEDS: HYDROcodone/ACETAMIN 5/325 mg TAB PO ONE ×2 (02:10→10:59)
[2023-08-17 08:47] LABS: ABS Eosinophils 0.1 10^3/uL (0.0-0.5); ABS Lymphocytes 1.7 10^3/uL (1.0-4.8); ABS Monocytes 0.6 10^3/uL (0.0-0.9); ABS Neutrophils 7.5 10^3/uL (1.5-7.6); Eosinophil % 0.5 %; Hematocrit 35.2 % (35-45); Hemoglobin 11.6 g/dL (11.5-14.3); Lymphocyte % 17.1 %; Mean Corpuscular Hgb Conc 32.9 g/dL (31-36); Mean Corpuscular Volume 88.1 fL (80-97); Mean Platelet Volume 7.3 fL (7.5-11.2); Platelet Count 409 10^3/uL (150-450); Red Cell Distribution Width 15.4 % (12-17); White Blood Count 9.8 10^3/uL (3.8-11.8)
[2023-08-17 08:54] LABS: Urine Appearance Turbid; Urine Bilirubin Negative (Negative); Urine Blood Trace (Negative); Urine Color Yellow; Urine Glucose Negative (Negative); Urine Ketones Negative (Negative); Urine Nitrite 2+ (Negative); Urine Protein Negative (Negative); Urine Urobilinogen Negative (Negative)
[2023-08-17 09:08] LABS: Calcium 10.1 mg/dL (8.6-10.3); Creatinine, Serum 0.72 mg/dL (0.51-0.95); eGFR CKD-EPI 83.9 (>60)
[2023-08-17 09:11] LABS: Budding Yeast Present /HPF (Absent); Urine Bacteria 3+ /HPF (Absent); Urine Red Blood Cell 2+(6-10/hpf) /HPF (0-Trace); Urine Squamous Epithelial Cell Present /HPF (Absent); Urine White Blood Cell 3+(>20/hpf) /HPF (0-Trace)
[2023-08-17 16:57] LABS: C Reactive Protein 13.58 mg/L (<8.01)
[2023-08-17] MEDS: Tiotropium Brom/Olodaterol MDI (ACUTE) INH SCH (17:26)
[2023-08-17] MEDS: Potassium Chlor 10 meq TAB PO SCH (17:27)
[2023-08-17] MEDS: DULoxetine DR 30 mg CAP PO SCH (17:27)
[2023-08-17] MEDS: HYDROcodone/ACETAMIN 5/325 mg TAB PO PRN (17:27)
[2023-08-17] MEDS: Lidocaine PATCH 5% PATCH TRANSDERM SCH (17:28)
[2023-08-17] MEDS: Enoxaparin 40 MG/0.4 ML SYR SUBCUT SCH (20:08)
[2023-08-18 06:27] LABS: ABS Monocytes 0.4 10^3/uL (0.0-0.9); ABS Neutrophils 5.7 10^3/uL (1.5-7.6); ABS Nucleated RBC 0.01 10^3/ul; Eosinophil % 0.2 %; Hematocrit 34.6 % (35-45); Hemoglobin 11.4 g/dL (11.5-14.3); Lymphocyte % 13.5 %; Mean Corpuscular Volume 87.8 fL (80-97); Mean Platelet Volume 7.4 fL (7.5-11.2); Nucleated Red Blood Cells % 0.1 %/100WBC (0.0-0.8); Platelet Count 369 10^3/uL (150-450); Red Blood Count 3.95 10^6/uL (3.63-4.92); Red Cell Distribution Width 15.6 % (12-17); White Blood Count 7.1 10^3/uL (3.8-11.8)
[2023-08-18 06:46] LABS: Calcium 9.4 mg/dL (8.6-10.3); Creatinine, Serum 0.61 mg/dL (0.51-0.95); Magnesium 1.7 mg/dL (1.9-2.7); Potassium 4.2 mmol/L (3.5-5.0); eGFR CKD-EPI 89.8 (>60)
[2023-08-18] MEDS: Magnesium Sulfate 2 gm BAG 2 GM/50 ML BAG IVPB ONE (07:57)
[2023-08-18] MEDS: Magnesium Sulfate IV 1GM/100ML 1 GM/100 ML BAG IV ONE (09:14)
[2023-08-18] MEDS: Nystatin TOP POWDER 15 GM BTL TOPICAL SCH (09:26)
[2023-08-19 13:27] VITALS: BP 113/48
== END 2023-08-19 15:25 | disposition home or self-care (01) ==
LOC: ED 01:35 → EDHOLD 01:35 → MED 16:08
PROVIDERS: ADMIT Internal Medicine; ATTEND Internal Medicine

== ENCOUNTER 2024-02-13 17:48 | Observation (INO) ==
[2024-02-13] MEDS: Lactated Ringers SEPSIS* BAG 2,180 ML IV ONE (18:42)
[2024-02-13 18:56] LABS: ABS Basophils 0.1 10^3/uL (0.0-0.1); ABS Monocytes 0.8 10^3/uL (0.0-0.9); ABS Neutrophils 11.8 10^3/uL (1.5-7.6); Hematocrit 37.6 % (35-45); Lymphocyte % 7.4 %; Mean Corpuscular Hemoglobin 27.5 pg (27-33); Mean Corpuscular Hgb Conc 31.9 g/dL (31-36); Mean Corpuscular Volume 86.3 fL (80-97); Mean Platelet Volume 7.4 fL (7.5-11.2); Platelet Count 557 10^3/uL (150-450); Red Blood Count 4.36 10^6/uL (3.63-4.92); Red Cell Distribution Width 15.1 % (12-17); White Blood Count 13.7 10^3/uL (3.8-11.8)
[2024-02-13 19:20] LABS: High Sens Troponin Baseline 7 pg/mL (<15)
[2024-02-13 19:23] LABS: Activated Partial Thrombo Time 25.3 seconds (26.0-38.0); INR 1.1 (0.83-1.13)
[2024-02-13] MEDS: Haloperidol 5 mg/ml SDV IV/IM 5 MG/ML AMP IV SLOW PU ONE (19:24)
[2024-02-13 19:48] LABS: ALT 18 U/L (7-52); Albumin 3.9 g/dL (3.2-5.2); Albumin/Globulin Ratio 1.1 (1-3); Alkaline Phosphatase 64 U/L (35-149); Anion Gap 8 mmol/L (2-16); Blood Urea Nitrogen 21 mg/dL (6-24); C Reactive Protein 81.56 mg/L (<8.01); CO2 Carbon Dioxide 33 mmol/L (22-32); Calcium 10.1 mg/dL (8.6-10.3); Chloride 94 mmol/L (101-111); Creatinine, Serum 0.66 mg/dL (0.51-0.95); Globulin 3.6 g/dL (2-4); Glucose 114 mg/dL (70-100); Sodium 135 mmol/L (135-145); Total Bilirubin 0.3 mg/dL (0.2-1.0); Total Protein 7.5 g/dL (6.4-8.9); eGFR CKD-EPI 87.5 (>60)
[2024-02-13 20:48] LABS: Potassium Redraw 3.8 mmol/L (3.5-5.0)
[2024-02-13 20:51] LABS: Urine Appearance Turbid; Urine Bilirubin Negative (Negative); Urine Blood Negative (Negative); Urine Color Light-Yellow; Urine Glucose Negative (Negative); Urine Ketones 1+ (Negative); Urine Nitrite 2+ (Negative); Urine Protein Negative (Negative); Urine Specific Gravity 1.012 (1.002-1.030); Urine Urobilinogen Negative (Negative)
[2024-02-13 20:56] LABS: Urine Bacteria 1+ /HPF (Absent); Urine Red Blood Cell Trace(0-2/hpf) /HPF (0-Trace); Urine White Blood Cell Trace(0-5/hpf) /HPF (0-Trace)
[2024-02-13] MEDS: Cefepime 2 GM in Dextrose 2 GM/50 ML BAG IV ONE (22:06)
[2024-02-13] MEDS: metroNIDAZOLE IV 500 MG/100ML 500 MG/100 ML BAG IVPB ONE (22:11)
[2024-02-13] MEDS: Vancomycin 1,000 MG in NS 0.9% 250 ml 250 ML IVPB ONE (23:09)
[2024-02-13] MEDS: Lactated Ringers 1000 ml BAG 1,000 ML IV SCH (23:59)
[2024-02-14] MEDS: Morphine 2 MG/ML SYRINGE IV ONE (01:21)
[2024-02-14] MEDS: Iodixanol (CONTRAST) 320 MG/ML 100 ML SDV IV ONE (02:16)
[2024-02-14] MEDS ORDERED: Dextrose 50% Syringe 50 ml 25 GM/50 ML SYRINGE IV PUSH PRN (03:30)
[2024-02-14 06:27] LABS: ABS Basophils 0.1 10^3/uL (0.0-0.1); ABS Lymphocytes 1.5 10^3/uL (1.0-4.8); ABS Monocytes 0.9 10^3/uL (0.0-0.9); ABS Neutrophils 13.1 10^3/uL (1.5-7.6); ABS Nucleated RBC 0.01 10^3/ul; Eosinophil % 0.1 %; Hematocrit 29.1 % (35-45); Hemoglobin 9.6 g/dL (11.5-14.3); Lymphocyte % 9.5 %; Mean Corpuscular Hemoglobin 28.2 pg (27-33); Mean Corpuscular Hgb Conc 32.8 g/dL (31-36); Mean Corpuscular Volume 85.9 fL (80-97); Mean Platelet Volume 7.2 fL (7.5-11.2); Platelet Count 399 10^3/uL (150-450); Red Blood Count 3.39 10^6/uL (3.63-4.92); White Blood Count 15.6 10^3/uL (3.8-11.8)
[2024-02-14] MEDS: Enoxaparin 40 MG/0.4 ML SYR SUBCUT SCH (06:33)
[2024-02-14] MEDS: cefTRIAXone 2 gm/50 mL D5W 2 GM/50 ML BAG IV SCH (06:35)
[2024-02-14 06:54] LABS: Albumin 2.9 g/dL (3.2-5.2); Albumin/Globulin Ratio 1.5 (1-3); Calcium 8.9 mg/dL (8.6-10.3); Creatinine, Serum 0.58 mg/dL (0.51-0.95); Globulin 1.9 g/dL (2-4); Potassium 3.6 mmol/L (3.5-5.0); Total Bilirubin 0.5 mg/dL (0.2-1.0); Total Protein 4.8 g/dL (6.4-8.9); eGFR CKD-EPI 90.3 (>60)
[2024-02-14] MEDS ORDERED: cefTRIAXone 1 gm/50 mL D5W 1 GM/50 ML BAG IV SCH (09:00)
[2024-02-14] MEDS: HYDROcodone/ACETAMIN 5/325 mg TAB PO PRN (10:43)
[2024-02-14] MEDS: Potassium Chlor 10 meq TAB PO SCH (11:04)
[2024-02-14] MEDS: DULoxetine DR 30 mg CAP PO SCH (11:04)
[2024-02-14] MEDS: Nystatin TOP POWDER 15 GM BTL TOPICAL SCH (11:05)
[2024-02-14] MEDS: Tiotropium Brom/Olodaterol MDI (ACUTE) INH SCH (13:05)
[2024-02-14] MEDS: Fluticasone NASAL SPRAY 50MCG 16 gm SPRAY BTL INTRANASAL SCH (13:05)
[2024-02-15 07:15] LABS: Hematocrit 30.8 % (35-45); Mean Corpuscular Hemoglobin 28.1 pg (27-33); Mean Corpuscular Hgb Conc 32.6 g/dL (31-36); Mean Corpuscular Volume 86.2 fL (80-97); Mean Platelet Volume 7.2 fL (7.5-11.2); Platelet Count 388 10^3/uL (150-450); Red Blood Count 3.57 10^6/uL (3.63-4.92); Red Cell Distribution Width 14.9 % (12-17); White Blood Count 9.8 10^3/uL (3.8-11.8)
[2024-02-15 07:55] LABS: Calcium 8.8 mg/dL (8.6-10.3); Creatinine, Serum 0.57 mg/dL (0.51-0.95); Potassium 3.7 mmol/L (3.5-5.0); eGFR CKD-EPI 90.7 (>60)
[2024-02-15] MEDS: Potassium Chlor 20 meq TAB.ER PO ONE (10:13)
[2024-02-15] MEDS: HYDROcodone/ACETAMIN 5/325 mg TAB PO PRN (23:46)
[2024-02-16 06:50] LABS: Calcium 8.7 mg/dL (8.6-10.3); Creatinine, Serum 0.57 mg/dL (0.51-0.95); Potassium 4.3 mmol/L (3.5-5.0); eGFR CKD-EPI 90.7 (>60)
[2024-02-16] MEDS: Amoxicillin/Clavul 875/125 TAB (Augmentin 875 tab) PO SCH (21:49)
[2024-02-17] MEDS: Insulin GLARGINE 100 un/ml 10 ml VIAL SUBCUT SCH (21:58)
[2024-02-18 08:24] LABS: ABS Eosinophils 0.1 10^3/uL (0.0-0.5); ABS Lymphocytes 1.8 10^3/uL (1.0-4.8); ABS Monocytes 0.7 10^3/uL (0.0-0.9); ABS Neutrophils 5.1 10^3/uL (1.5-7.6); Eosinophil % 1.4 %; Hematocrit 31.3 % (35-45); Hemoglobin 10.2 g/dL (11.5-14.3); Lymphocyte % 23.2 %; Mean Corpuscular Hemoglobin 28.1 pg (27-33); Mean Corpuscular Hgb Conc 32.8 g/dL (31-36); Mean Corpuscular Volume 85.8 fL (80-97); Mean Platelet Volume 7.1 fL (7.5-11.2); Platelet Count 445 10^3/uL (150-450); Red Blood Count 3.64 10^6/uL (3.63-4.92); Red Cell Distribution Width 15.3 % (12-17); White Blood Count 7.8 10^3/uL (3.8-11.8)
[2024-02-18 08:48] LABS: Calcium 9.2 mg/dL (8.6-10.3); Creatinine, Serum 0.49 mg/dL (0.51-0.95); Potassium 3.8 mmol/L (3.5-5.0)
[2024-02-19 11:28] LABS: Rapid COVID-19 Molecular Undetected (Undetected)
[2024-02-20 06:01] VITALS: BP 131/66
== END 2024-02-20 10:35 ==
LOC: ED 17:48 → EDHOLD 17:48 → SUATTDRO 22:05 → MED 02-14 07:47
PROVIDERS: ADMIT Student in an Organized Health Care Education/Training Program; ATTEND Internal Medicine